=== PATIENT | female | born 1985 | race Caucasian/White ===

== ENCOUNTER 2017-08-21 21:41 | Emergency (ER) | payer OTHER, SELFPAY ==
[2017-08-21 21:45] VITALS: BP 120/72; PULSE 90; RESP 18; TEMP 36.3; O2SAT 99; BMI 31.4
--- NOTE | 2017-08-21 22:03 | ED.ALLEREA ---
HPI - Allergic Reaction General Chief complaint: Allergic Reaction Stated complaint: ALLERGIC REACTION Time Seen by Provider: 08/21/17 21:56 Source: patient Mode of arrival: ambulatory Limitations: no limitations History of Present Illness HPI narrative: Otherwise healthy 32-year-old female here for evaluation possible allergic reaction. Patient states that approximately noon on the day of presentation she took a new medication for her headaches that was provided by her headache specialist. She also took a dose of prednisone. She states that several hours after taking his medication she started to developed redness on her right upper extremity and itching. No problems breathing. No vomiting. Patient states that she had an allergic reaction to another medicine earlier in her life which presented the same way. She did take 25 mg of Benadryl prior to arrival. Related Data Home Medications Medication Instructions Recorded Confirmed Glutathione PO 07/23/17 08/14/17 Probiotic PO 07/23/17 08/14/17 Restore Gut PO 07/23/17 08/14/17 Tumeric PO 07/23/17 08/14/17 cholecalciferol (vitamin D3) 10,000 unit PO DAILY 07/23/17 08/14/17 10,000 unit tablet magnesium 250 mg tablet 800 mg PO DAILY tab 07/23/17 08/14/17 prednisone 08/21/17 verapamil 08/21/17 Previous Rx's Medication Instructions Recorded naratriptan 2.5 mg tablet 2.5 mg PO Q2H PRN #12 tab 07/23/17 prednisone 20 mg tablet 20 mg PO .COMPLEX #7 tab 07/23/17 prednisone 20 mg tablet 20 mg PO .COMPLEX #21 tab 08/18/17 verapamil ER 120 mg 24 hr 120 mg PO DAILY #30 cap 08/18/17 capsule,extended release Allergies Allergy/AdvReac Type Severity Reaction Status Date / Time Sulfa (Sulfonamide Allergy Severe ANAPHALAXIS Verified 08/21/17 21:56 Antibiotics) [SULFA (SULFONAMIDE ANTIBIOTICS)] warfarin [WARFARIN] Allergy Unknown Verified 08/21/17 21:56 Review of Systems Constitutional Denies chills, Denies fever(s), Denies lethargy and Denies weakness Eyes Denies change in vision, Denies eye discharge, Denies irritation, Denies itchy eyes and Denies loss of vision ENT Ears, Nose, Mouth, and Throat: Denies throat swelling Cardiovascular Denies dyspnea and Denies dyspnea on exertion Respiratory Denies cough, Denies dyspnea, Denies dyspnea on exertion and Denies wheezing Gastrointestinal Gastrointestinal: Denies abdominal pain, Denies change in bowel habits, Denies diarrhea, Denies nausea and Denies vomiting Musculoskeletal Denies back pain, Denies muscle weakness, Denies numbness and Denies tingling Comments: Integumentary/Breasts Reports pruritus, Reports new lesions, Reports erythema, Reports rash and Denies wounds Neurologic Denies loss of vision, Denies numbness, Denies tingling and Denies weakness Hematologic/Lymphatic Denies easy bruising Allergic/Immunologic Denies urticaria, Denies itchy eyes, Denies throat swelling and Denies wheezing [facility] Family History Grandfather Cancer High cholesterol Grandmother Age: 80 Lung cancer Brain cancer High cholesterol Mental health problem Mother Age: 52 Thyroid disease Mental health problem Sister Age: 23 Diabetes mellitus Hypertension Sister Age: 28 Thyroid disease Mental health problem Social History Smoking Status: Former smoker Exam Initial Vital Signs Initial Vital Signs: Vital Signs Temperature 97.3 F L 08/21/17 21:45 Pulse Rate 90 08/21/17 21:45 Respiratory Rate 18 08/21/17 21:45 Blood Pressure 120/72 08/21/17 21:45 Pulse Oximetry 99 08/21/17 21:45 Const General: cooperative and well developed Nutritional Appearance: well nourished Orientation: alert, awake, oriented x3 and not confused [facility] Head: normocephalic and atraumatic Nose: external nose normal and No nasal discharge Face and sinus: sinuses nontender, face symmetric, no sinus tenderness and No dry mucous membranes Mouth: oral mucosae normal and moist mucous membranes Teeth and gingiva: dentition normal Throat: tonsils normal and uvula midline Resp Effort & Inspection: normal respiratory effort, able to speak in complete sentences, no respiratory distress and no use of accessory muscles Auscultation: clear to auscultation bilaterally, no rales, no rhonchi and no wheezes Cardio Rate: regular rate Rhythm: regular rhythm Heart Sounds: no click, no gallops, no murmurs and no rubs Pulses: normal peripheral pulses Skin Other: Patient with a red area on upper extremity predominantly located around her right wrist. No blisters. No urticaria. No vesicles. Neuro General: alert, oriented x3, gait normal and no focal motor deficits Speech: speech normal Course Orders Ordered: Discontinued Medications Diphenhydramine HCl (Benadryl) 25 mg IV NOW ONE Stop: 08/21/17 22:11 Last Admin: 08/21/17 22:34 Dose: 25 mg Methylprednisolone (Solu-Medrol 125 Mg Vial) 125 mg IV NOW ONE Stop: 08/21/17 22:11 Last Admin: 08/21/17 22:34 Dose: 125 mg Vital Signs - 8 hr 08/21/17 21:45 08/21/17 23:39 Temperature 97.3 F L 97.7 F Pulse Rate 90 75 Respiratory Rate 18 16 Blood Pressure 120/72 104/64 Pulse Oximetry 99 99 MDM - Allergic Reaction MDM Narrative Medical decision making narrative: Patient was given steroids and Benadryl here in the emergency department. She states that the itching has improved somewhat but is not completely gone away. She has no respiratory distress. No signs of anaphylaxis. Will hold on giving any epinephrine. Offered more medication to help with the itching however the patient declined. We did discuss that the exact etiology of her symptoms is unknown however it could be from the new medication that she took earlier today. Recommend that she stop this medication until her symptoms completely resolved. She does have prednisone at home and she was instructed to continue this medication. She was given return precautions. She expressed understanding and agreement with plan Discharge Plan Departure Patient Disposition: Home, Self-Care Clinical Impression: Allergic reaction Discharge Date/Time: 08/21/17 23:39 Interventions: ED Discharge Assessment Last Done: 08/21/17 23:39 Instructions: DI for General Allergic Reactions Activity Restrictions/Additional Instructions: Continue the prednisone likely discussed. You can do the Benadryl 1-2 tablets every 4-6 hours as needed for the itching. I would recommend that you stop the verapamil until your symptoms have improved and then talk with the prescribing doctor regarding continuing this medication. Return to the emergency department for any new or worsening symptoms Prescriptions: No Action prednisone 20 mg tablet 20 mg PO .COMPLEX Qty: 21 RF: 0 verapamil 120 mg capsule,ext rel. pellets 24 hr 120 mg PO DAILY Qty: 30 RF: 11 prednisone 20 mg tablet RF: 0 verapamil 120 mg capsule,ext rel. pellets 24 hr RF: 0 Probiotic PO RF: 0 cholecalciferol (vitamin D3) 10,000 unit tablet 10,000 unit PO DAILY RF: 0 Restore Gut PO RF: 0 magnesium 250 mg tablet 800 mg PO DAILY RF: 0 Tumeric PO RF: 0 Glutathione PO RF: 0 prednisone 20 mg tablet 20 mg PO .COMPLEX Qty: 7 RF: 0 naratriptan 2.5 mg tablet 2.5 mg PO Q2H PRN (Reason: migraine headache) Qty: 12 RF: 11
[2017-08-21] MEDS: methylPREDNISolone 125 MG/2 ML VIAL IV (22:34)
[2017-08-21] MEDS: diphenhydrAMINE 50 MG/ML VIAL 25 MG IV (22:34)
[2017-08-21 23:39] VITALS: BP 104/64; PULSE 75; RESP 16; TEMP 36.5; O2SAT 99
== END 2017-08-21 23:39 | disposition home or self-care (01) ==
PROVIDERS: Emergency Provider Emergency Medicine; Family Provider Family Medicine; PCP Family Medicine
DX: T78.40XA Allergy, unspecified, initial encounter (principal)
CPT/HCPCS: 96374; 96375; 99282; 99285; J1200; J2930

== ENCOUNTER → 2017-09-10 10:55 | Outpatient (CLI) | payer OTHER, SELFPAY ==
[2017-09-11 17:35] LABS: Progesterone 8.7 ng/mL
[2017-09-12 15:10] LABS: Dehydroepiandrosterone Sulfate 166 mcg/dL (18-391)
[2017-09-12 17:54] LABS: Estrogen 252.5 pg/mL
== END ==
PROVIDERS: Visit Provider Nurse Practitioner Family
DX: E28.0 Estrogen excess (principal); N92.6 Irregular menstruation, unspecified; G43.919 Migraine, unspecified, intractable, without status migrainosus
CPT/HCPCS: 36415; 82627; 82672; 84144; 84403

== ENCOUNTER → 2017-11-25 14:41 | Outpatient (CLI) | payer OTHER, SELFPAY ==
[2017-11-25 16:23] LABS: Free T3, Triiodothyronine Free 3.62 pg/mL (2.77-5.27); Free T4, Direct Thyroxine 1.24 ng/dL (0.78-2.19)
[2017-11-27 15:04] LABS: Anti Thyroglobulin Antibody < 1 IU/mL (< 2); Thyroglobulin Level 56.5 ng/mL (2.8-40.9); Thyroid Peroxidase Antibodies < 1 IU/mL (< 9)
== END ==
PROVIDERS: PCP Naturopath; Visit Provider Naturopath
DX: E04.0 Nontoxic diffuse goiter (principal)
CPT/HCPCS: 36415; 84432; 84439; 84443; 84481; 86376; 86800

== ENCOUNTER → 2017-11-30 14:39 | Outpatient (CLI) | payer OTHER, SELFPAY ==
--- NOTE | 2017-11-30 | DI.RAD.S_ITS ---
PROCEDURE: XR CHEST 2V INDICATIONS: COUGH TECHNIQUE: 2 views of the chest were acquired. COMPARISON: [facility], , CHEST 1 VIEW, 12/04/2016, 21:15. FINDINGS: Surgical changes and devices: None. Lungs and pleura: No pleural effusions or pneumothorax. Lungs are clear. Mediastinum: Mediastinal contours are normal. Heart size is normal. Bones and chest wall: No suspicious bony abnormalities. Soft tissues appear unremarkable. IMPRESSION: No acute cardiopulmonary pathology. Dictated by: Nicola Gill M.D. on 11/30/2017 at 15:27 Approved by: Nicola Gill M.D. on 11/30/2017 at 15:28
== END ==
PROVIDERS: Family Provider Family Medicine; PCP Naturopath; Visit Provider Naturopath
DX: R05 Cough (principal)
CPT/HCPCS: 71046

== ENCOUNTER → 2017-12-09 15:07 | Outpatient (CLI) | payer OTHER, SELFPAY ==
[2017-12-09 15:47] LABS: Add Manual Diff / Slide Review NO; Basophils Percent Auto 0.6 % (0-2); Eosinophils Percent Auto 0.5 % (2-4); Hematocrit 43.3 % (36-46); Hemoglobin 14.8 g/dL (12.0-16.0); Lymphocytes Percent Auto 23.4 % (25-40); Mean Corpuscular HGB Conc 34.3 % (30-36); Mean Corpuscular Hemoglobin 31.7 PG (26-34); Mean Corpuscular Volume 92.4 fL (80-100); Neutrophils Absolute Auto 5200 /uL (3000-5900); Neutrophils Percent Auto 67.5 % (50-75); Platelet Count 159 X10^3/uL (150-400); Red Blood Cell Count 4.68 X10^6/uL (4.0-5.2); Red Cell Distribution Width 12.9 % (11.6-14.8); White Blood Cell Count 7.7 X10^3/uL (4.5-11.0)
[2017-12-09 16:12] LABS: Alanine Aminotransferase 21 IU/L (9-52); Albumin 4.8 g/dL (3.5-5.0); Albumin Globulin Ratio 1.7 (1.0-2.8); Alkaline Phosphatase 38 U/L (38-126); Aspartate Aminotransferase 15 IU/L (14-36); BUN Creatinine Ratio 15.7 (6-22); Bilirubin Total 0.6 mg/dL (0.2-1.3); Blood Urea Nitrogen 11 mg/dL (7-17); Calcium 9.8 mg/dL (8.4-10.2); Carbon Dioxide 30 mmol/L (22-32); Chloride 102 mmol/L (98-107); Estimated Glomerular Filt Rate > 60.0 mL/min (>60); Globulin 2.9 g/dL (1.7-4.1); Glucose 89 mg/dL (70-100); HEMOLYSIS 17 (0-50); Potassium 4.2 mmol/L (3.4-5.1); Sodium 142 mmol/L (137-145); Total Protein 7.7 g/dL (6.3-8.2)
== END ==
PROVIDERS: Family Provider Family Medicine; PCP Naturopath; Visit Provider Internal Medicine
DX: R00.2 Palpitations (principal)
CPT/HCPCS: 36415; 80053; 85025

== ENCOUNTER → 2017-12-18 15:00 | Outpatient (CLI) | payer OTHER, SELFPAY ==
--- NOTE | 2017-12-25 16:05 | PM.CARDMON.1 ---
Fire Chief Deputy Report Referral & Results Date Patient Seen: 12/18/17 Requesting provider: Joshua Zaldivar Indication: Palpitations Duration of monitoring (days): 3 Diary information: There was 1 diary entry by the patient associated with sinus rhythm There were 7 patient triggered events also associated with sinus rhythm Data: Minimum heart rate identified was 52 beats per minute at 00:28 on 12/19/2017 Maximum heart rate was 143 beats per minute at 08:47 on 12/20/2017 Less than 1% of identified beats were PACs No PVCs or identified Impression: Normal monitoring tech. No evidence of dysrhythmias a source of patient's symptoms
--- NOTE | 2017-12-25 16:08 | P.HOLT.S_ITS ---
Plant Wire Chief Report Referral & Results Date Patient Seen: 12/18/17 Requesting provider: Joshua Zaldivar Indication: Palpitations Duration of monitoring (days): 3 Diary information: There was 1 diary entry by the patient associated with sinus rhythm There were 7 patient triggered events also associated with sinus rhythm Data: Minimum heart rate identified was 52 beats per minute at 00:28 on 2017 Maximum heart rate was 143 beats per minute at 08:47 on 12/20/2017 Less than 1% of identified beats were PACs No PVCs or identified Impression: Normal equipment monitor phototypesetting. No evidence of dysrhythmias a source of patient's symptoms
== END ==
PROVIDERS: Family Provider Family Medicine; PCP Naturopath; Visit Provider Internal Medicine
DX: R00.2 Palpitations (principal)
CPT/HCPCS: 0296T; 0298T

== ENCOUNTER → 2018-02-05 09:29 | Outpatient (CLI) | payer OTHER, SELFPAY ==
[2018-02-05 11:37] LABS: Thyroid Stimulating Hormone 0.84 uIU/mL (0.47-4.68)
[2018-02-05 11:50] LABS: HIV 1 and 2 Antibody NEGATIVE (NEGATIVE)
[2018-02-06 14:39] LABS: CMV IgM Antibody < 30.00 AU/mL (< 30.00)
== END ==
PROVIDERS: PCP Naturopath; Visit Provider Naturopath
DX: J31.2 Chronic pharyngitis (principal); E04.0 Nontoxic diffuse goiter
CPT/HCPCS: 36415; 84443; 86644; 86645; 86658; 86703; 87081; 87147

== ENCOUNTER → 2018-03-08 13:11 | Outpatient (CLI) | payer OTHER, SELFPAY ==
--- NOTE | 2018-03-08 | DI.US.S_ITS ---
PROCEDURE: US ABDOMEN COMPLETE INDICATIONS: Left upper quadrant pain TECHNIQUE: Real-time scanning was performed of the abdominal and retroperitoneal organs, with image documentation. COMPARISON: [facility], , ABDOMEN ACUTE SERIES, 03/20/2017, 23:15. FINDINGS: Liver: Liver is normal in size and homogeneous in echotexture. Gallbladder: No gallstones. No gallbladder wall thickening, pericholecystic fluid or sonographic Kat's sign. Biliary ducts: Intrahepatic bile ducts are non-dilated. Extrahepatic bile duct caliber measures 5 mm. Normal is 6-7 mm or less in diameter, or 10 mm or less post-cholecystectomy. Pancreas: Visualized portions of the pancreas are sonographically normal. Spleen: Spleen is normal in size and homogeneous in echotexture. Kidneys: Kidneys are normal in size and echotexture. Right kidney measures 10.9 cm long; left kidney measures 11.7 cm long. No hydronephrosis or nephrolithiasis. No solid masses. Aorta: Visualized aorta is normal in caliber at less than 3 cm. Iliacs: Proximal common iliac arteries are normal in caliber at less than 2.5 cm. IVC: Intrahepatic inferior vena cava is patent. Miscellaneous: No free abdominal fluid. IMPRESSION: 1. Normal abdominal ultrasound exam. A cause for left upper quadrant pain is not identified Dictated by: Gael Olivia M.D. on 03/08/2018 at 14:39 Approved by: Gael Olivia M.D. on 03/08/2018 at 14:41
== END ==
PROVIDERS: Family Provider Family Medicine; PCP Naturopath; Visit Provider Naturopath
DX: R10.12 Left upper quadrant pain (principal)
CPT/HCPCS: 76700

== ENCOUNTER → 2018-06-04 11:15 | Outpatient (CLI) | payer OTHER, SELFPAY ==
--- NOTE | 2018-06-04 11:17 | DI.MRI.S_ITS ---
PROCEDURE: MR HEAD/BRAIN WO CON INDICATIONS: positional dexter worse lying down. r/o IIH changes TECHNIQUE: Noncontrast axial T1 spin echo, axial T2 fast spin echo, sagittal and axial FLAIR, coronal T2 fast spin echo, axial gradient echo, axial diffusion and ADC through the brain. COMPARISON: [facility], MR, BRAIN WITHOUT CONTRAST, 02/18/2017, 10:05. [facility], MR, MR BRAIN WITH/WITHOUT CONTRAST, 05/05/2017, 10:14. FINDINGS: Image quality: Excellent. CSF Spaces: Basal cisterns are patent. No extra-axial fluid collections. Ventricles are normal in size and shape. Brain: No intracranial masses or hemorrhage. Narvaez/white matter interface is normal. Brainstem appears normal. Diffusion-weighted images demonstrate no acute ischemic insult. No chronic ischemic insults. Normal intravascular flow voids are present. Skull and face: Calvarium has normal marrow signal. Orbits appear normal. Sinuses: Sinuses and mastoids are clear. IMPRESSION: Unremarkable unenhanced examination. Normal appearance of the sella. Dictated by: Haider Singer M.D. on 06/04/2018 at 13:39 Approved by: Haider Singer M.D. on 06/04/2018 at 13:43
== END ==
PROVIDERS: Absent Provider Family Medicine; Family Provider Family Medicine; PCP Naturopath; Visit Provider Family Medicine
DX: G43.119 Migraine with aura, intractable, without status migrainosus (principal)
CPT/HCPCS: 70551

== ENCOUNTER → 2018-07-22 14:10 | Outpatient (CLI) | payer OTHER, SELFPAY ==
[2018-07-22 14:47] LABS: Add Manual Diff / Slide Review NO; Basophils Absolute Auto 0 /uL (0-100); Basophils Percent Auto 0.6 % (0-2); Eosinophils Absolute Auto 0 /uL (0-450); Eosinophils Percent Auto 0.3 % (2-4); Hematocrit 45.1 % (36-46); Hemoglobin 15.2 g/dL (12.0-16.0); Lymphocytes Absolute Auto 1900 /uL (1100-4500); Mean Corpuscular HGB Conc 33.7 % (30-36); Mean Corpuscular Hemoglobin 31.3 PG (26-34); Mean Corpuscular Volume 92.7 fL (80-100); Monocytes Absolute Auto 500 /uL (0-900); Monocytes Percent Auto 7.6 % (3-14); Neutrophils Absolute Auto 3700 /uL (1500-7000); Neutrophils Percent Auto 60.5 % (50-75); Platelet Count 157 X10^3/uL (150-400); Red Blood Cell Count 4.87 X10^6/uL (4.0-5.2); Red Cell Distribution Width 13.3 % (11.6-14.8); White Blood Cell Count 6.1 X10^3/uL (4.5-11.0)
[2018-07-22 14:50] LABS: PTT Partial Thromboplastin Tim 36 SECONDS (26.4-36.2)
== END ==
PROVIDERS: PCP Naturopath; Visit Provider Family Medicine
DX: G08 Intracranial and intraspinal phlebitis and thrombophlebitis (principal)
CPT/HCPCS: 36415; 85025; 85610; 85730

== ENCOUNTER 2018-07-30 12:08 | Emergency (ER) | payer OTHER, SELFPAY ==
[2018-07-30 12:10] VITALS: BP 122/77; PULSE 91; RESP 12; TEMP 36.6; O2SAT 100; BMI 31.1
[2018-07-30 12:30] VITALS: BP 132/73; PULSE 91; RESP 18; O2SAT 100
--- NOTE | 2018-07-30 13:06 | DI.CT.S_ITS ---
PROCEDURE: CT ANGIO CHEST PE PROTOCOL INDICATIONS: chest pain, near syncope, hx Factor V TECHNIQUE: After the administration of intravenous contrast, 2 mm thick sections acquired from the pulmonary apices to the posterior costophrenic angles. 3-dimensional maximum intensity projection (MIP) coronal and sagittal reformats were then acquired through the thorax. For radiation dose reduction, the following was used: automated exposure control, adjustment of mA and/or kV according to patient size. COMPARISON: [facility], CT, PE STUDY (CTA CHEST), 12/04/2016, 21:52. FINDINGS: Image quality: Excellent. Pulmonary arteries: Pulmonary arterial opacification is suboptimal. No definite filling defects within the central pulmonary arterial tree to indicate embolus. Lungs and pleura: Lungs are clear. No pleural effusions or pneumothorax. Central and peripheral airways are patent. Mediastinum: Heart size is normal, without pericardial effusion. No mediastinal or hilar adenopathy. Thoracic aorta is normal in caliber and enhancement. Esophagus is normal in caliber, without hiatal hernia. Bones and chest wall: No suspicious bony lesions. Ribs and thoracic spine appear intact throughout. Thyroid gland is within normal limits. No axillary or supraclavicular adenopathy. Abdomen: Visualized upper abdominal solid organs appear normal in the early arterial phase of enhancement. IMPRESSION: 1. Limited evaluation for pulmonary embolus. No evidence of central pulmonary embolus. 2. No acute process. Dictated by: Danish Manjarrez M.D. on 07/30/2018 at 13:18 Approved by: Danish Manjarrez M.D. on 07/30/2018 at 13:20
[2018-07-30 13:09] LABS: Bacteria Urine None Seen
--- NOTE | 2018-07-30 13:10 | ED.SYNCOPE ---
HPI - Syncope General Chief Complaint: Syncope Stated Complaint: syncopal Time Seen by Provider: 07/30/18 12:38 Source: patient and EMS Mode of arrival: EMS Limitations: no limitations History of Present Illness HPI narrative: 33-year-old female nonsmoker with history of factor 5 [place] presents with a chief complaint of chest pain, palpitations, shortness of breath and near syncope just prior to arrival. She states her pain is achy or pressure-like and radiates to her back. She denies provocation or palliation. She denies nausea, vomiting or diaphoresis. She denies recent travel. She denies and has an IUD in place. 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 She then was helped to the floor and nearly passed out. MD complaint: felt faint and almost passed out Onset (ago): minute(s) Prodromal symptoms: vision changes and lightheaded Witnessed: yes - by bystander Context: at rest Injuries sustained associated with event: none Current symptoms: none Treatments prior to arrival: none Related Data Home Medications Medication Instructions Recorded Confirmed Probiotic PO 07/23/17 07/23/18 cholecalciferol (vitamin D3) 10,000 unit PO DAILY 07/23/17 07/23/18 10,000 unit tablet copper 380 square mm intrauterine INTRAUTERINE each 03/08/18 07/23/18 device magnesium 250 mg tablet 421 mg PO DAILY tab 05/24/18 07/23/18 Allergies Allergy/AdvReac Type Severity Reaction Status Date / Time Sulfa (Sulfonamide Allergy Severe ANAPHALAXIS Verified 07/23/18 11:20 Antibiotics) [SULFA (SULFONAMIDE ANTIBIOTICS)] warfarin [WARFARIN] Allergy Unknown Verified 07/23/18 11:20 verapamil Allergy Verified 07/23/18 11:20 Review of Systems Constitutional Denies chills, Denies fever(s), Denies lethargy and Denies weakness Eyes Denies change in vision, Denies eye discharge, Denies irritation and Denies loss of vision ENT Ears, Nose, Mouth, and Throat: Denies change in voice, Denies neck pain and Denies sore throat Cardiovascular Reports chest pain, Denies irregular heart rhythm, Denies lightheadedness, Reports palpitations, Reports dyspnea, Reports dyspnea on exertion and Denies orthopnea Respiratory Denies cough, Reports dyspnea, Reports dyspnea on exertion and Denies wheezing Gastrointestinal Gastrointestinal: Denies abdominal pain, Denies change in bowel habits, Denies diarrhea, Denies nausea and Denies vomiting Genitourinary Denies hematuria, Denies flank pain, Denies urinary incontinence and Denies urinary urgency Musculoskeletal Reports back pain and Denies neck pain Integumentary/Breasts Denies pruritus, Denies erythema, Denies rash and Denies wounds Neurologic Denies confusion, Denies loss of vision and Denies weakness Psychiatric Denies anxiety, Denies confusion, Denies depression, Denies homicidal ideation and Denies suicidal ideation Endocrine Reports palpitations Hematologic/Lymphatic Denies easy bruising Allergic/Immunologic Denies wheezing [facility] Medical History Abnormal Pap smear of cervix (Chronic ~2014) Anxiety (Chronic ~2011) Carpal tunnel syndrome (Chronic) Frequent UTI (Chronic ~2014) Ovarian cyst (Chronic ~2007) Shoulder pain (Chronic ~2007) Chicken pox (Resolved) Family History Grandfather Cancer High cholesterol Grandmother Age: 81 Lung cancer Brain cancer High cholesterol Mental health problem Mother Age: 53 Thyroid disease Mental health problem Sister Age: 24 Diabetes mellitus Hypertension CAH (chronic active hepatitis) Sister Age: 29 Thyroid disease Mental health problem Social History Smoking Status: Former smoker Family History Grandfather Cancer High cholesterol Grandmother Age: 81 Lung cancer Brain cancer High cholesterol Mental health problem Mother Age: 53 Thyroid disease Mental health problem Sister Age: 24 Diabetes mellitus Hypertension CAH (chronic active hepatitis) Sister Age: 29 Thyroid disease Mental health problem Social History Smoking Status: Former smoker Exam Narrative Exam Narrative: GENERAL: This is a well-nourished, well-developed patient, in mild distress. HEAD: Atraumatic. Normocephalic. No temporal or scalp tenderness. EYES: Pupils equal round and reactive. Extraocular motions intact. No scleral icterus. No injection or drainage. ENT: Nose without bleeding, purulent drainage or septal hematoma. Throat without erythema, tonsillar hypertrophy or exudate. Uvula midline. Airway patent. NECK: Trachea midline. No JVD or lymphadenopathy. Supple, nontender, no meningeal signs. CARDIOVASCULAR: Regular rate and rhythm without murmurs, gallops, or rubs. RESPIRATORY: Clear to auscultation. Breath sounds equal bilaterally. No wheezes, rales, or rhonchi. GASTROINTESTINAL: Abdomen soft, non-tender, nondistended. No hepato-splenomegaly, or palpable masses. No guarding. EXTREMITIES: No clubbing, cyanosis, or edema. No joint tenderness, effusion, or edema noted. BACK: Nontender without deformity or crepitance. No flank tenderness. NEURO: AOx3. SKIN: No rash or erythema. Initial Vital Signs Initial Vital Signs: Vital Signs Temperature 97.9 F 07/30/18 12:10 Pulse Rate 91 H 07/30/18 12:10 Respiratory Rate 12 07/30/18 12:10 Blood Pressure 122/77 07/30/18 12:10 Pulse Oximetry 100 07/30/18 12:10 Course Orders Ordered: ED Orders 07/30/18 12:47 Urinalysis and Microscopic Stat Urine Drug Screen, Rapid Stat 07/30/18 13:06 CT angio chest PE protocol Stat 07/30/18 13:20 Complete Blood Count AUTO DIFF Stat Comprehensive Metabolic Panel Stat Lipase Stat Troponin & CK Cardiac Panel Stat 07/30/18 13:44 EKG-12 Lead Stat 07/30/18 14:45 US abdomen complete Stat Discontinued Medications Sodium Chloride (Normal Saline 0.9%) 1,000 mls @ 150 mls/hr IV CONT ROBERTO Last Infusion: 07/30/18 17:48 Dose: 0 mls/hr Admin: 07/30/18 13:20 Dose: 150 mls/hr Consultations Consultation #1: discussed with PCP, happy to see in office next week Vital Signs - 8 hr 07/30/18 12:10 07/30/18 12:30 07/30/18 13:22 Temperature 97.9 F Pulse Rate 91 H 91 H 90 Respiratory Rate 12 18 16 Blood Pressure 122/77 Blood Pressure [Right Arm] 132/73 116/73 Pulse Oximetry 100 100 100 07/30/18 14:46 07/30/18 16:55 Temperature Pulse Rate 87 82 Respiratory Rate 19 15 Blood Pressure Blood Pressure [Right Arm] 120/71 112/72 Pulse Oximetry 98 98 MDM - Syncope Lab Data Result diagrams: 07/30/18 13:20 07/30/18 13:20 Lab Results 07/30/18 07/30/18 07/30/18 Range/Units 12:47 12:47 13:20 WBC 5.9 (4.5-11.0) X10^3/uL RBC 4.75 (4.0-5.2) X10^6/uL Hgb 14.5 (12.0-16.0) g/dL Hct 44.2 (36-46) % MCV 93.0 (80-100) fL MCH 30.5 (26-34) PG MCHC 32.8 (30-36) % RDW 13.0 (11.6-14.8) % Plt Count 140 L (150-400) X10^3/uL Neut % (Auto) 72.4 (50-75) % Lymph % (Auto) 21.3 L (25-40) % [place] % (Auto) 5.7 (3-14) % Eos % (Auto) 0.3 L (2-4) % Baso % (Auto) 0.3 (0-2) % Neut # (Auto) 4300 (3782-7121) /uL Lymph # (Auto) 1300 (7541-1933) /uL [place] # (Auto) 300 (0-900) /uL Eos # (Auto) 0 (0-450) /uL Baso # (Auto) 0 (0-100) /uL Sodium (137-145) mmol/L Potassium (3.4-5.1) mmol/L Chloride (98-107) mmol/L Carbon Dioxide (22-32) mmol/L BUN (7-17) mg/dL Creatinine (0.52-1.04) mg/dL Estimated GFR (>60) mL/min BUN/Creatinine Ratio (6-22) Glucose (70-100) mg/dL Calcium (8.4-10.2) mg/dL Total Bilirubin (0.2-1.3) mg/dL AST (14-36) IU/L ALT (9-52) IU/L Alkaline Phosphatase (38-126) U/L Total Creatine Kinase (30-135) U/L CK-MB (CK-2) CK-MB (CK-2) Rel Index Troponin I (0.01-0.034) ng/mL Total Protein (6.3-8.2) g/dL Albumin (3.5-5.0) g/dL Globulin (1.7-4.1) g/dL Albumin/Globulin Ratio (1.0-2.8) Lipase (23-300) U/L Urine Color Yellow Urine Appearance Clear Urine pH 7.5 (4.5-8.0) Ur Specific [place] 1.010 (1.000-1.035) Urine Protein Negative (Negative) Urine Glucose (UA) Negative (Negative) g/dL Urine Ketones Trace H (NEGATIVE) Urine Occult Blood Negative (Negative) Urine Nitrate Negative (Negative) Urine Bilirubin Negative (NEGATIVE) Urine Urobilinogen 0.2 (0.2) E.U./dL Ur Leukocyte Esterase Negative (NEGATIVE) Urine RBC 0-1/hpf (0-5/HPF) Urine WBC 0-1/hpf (0-5/HPF) Ur Squamous Epith Cells 0-1 /hpf (0-5/HPF) Urine Bacteria None seen (None) Ur Culture Indicated? Cult not indicated Micro UA Comment Microscopic normal Urine Opiates Screen Negative (Negative) Ur Oxycodone Screen Negative (Negative) Urine Methadone Screen Negative (Negative) Ur Barbiturates Screen Negative (Negative) U Tricyclic Antidepress Negative (Negative) Ur Phencyclidine Scrn Negative (Negative) Ur Amphetamines Screen Negative (Negative) U Methamphetamines Scrn Negative (Negative) Ur MDMA Scrn (Ecstasy) Negative (Negative) U Benzodiazepines Scrn Negative (Negative) Urine Cocaine Screen Negative (Negative) U Marijuana (THC) Screen Negative (Negative) 07/30/18 Range/Units 13:20 WBC (4.5-11.0) X10^3/uL RBC (4.0-5.2) X10^6/uL Hgb (12.0-16.0) g/dL Hct (36-46) % MCV (80-100) fL MCH (26-34) PG MCHC (30-36) % RDW (11.6-14.8) % Plt Count (150-400) X10^3/uL Neut % (Auto) (50-75) % Lymph % (Auto) (25-40) % [place] % (Auto) (3-14) % Eos % (Auto) (2-4) % Baso % (Auto) (0-2) % Neut # (Auto) (4881-5506) /uL Lymph # (Auto) (5439-5224) /uL [place] # (Auto) (0-900) /uL Eos # (Auto) (0-450) /uL Baso # (Auto) (0-100) /uL Sodium 140 (137-145) mmol/L Potassium 3.4 (3.4-5.1) mmol/L Chloride 104 (98-107) mmol/L Carbon Dioxide 25 (22-32) mmol/L BUN 6 L (7-17) mg/dL Creatinine 0.60 (0.52-1.04) mg/dL Estimated GFR > 60.0 (>60) mL/min BUN/Creatinine Ratio 10.0 (6-22) Glucose 88 (70-100) mg/dL Calcium 9.3 (8.4-10.2) mg/dL Total Bilirubin 0.6 (0.2-1.3) mg/dL AST 16 (14-36) IU/L ALT 19 (9-52) IU/L Alkaline Phosphatase 49 (38-126) U/L Total Creatine Kinase 52 (30-135) U/L CK-MB (CK-2) TNP CK-MB (CK-2) Rel Index TNP Troponin I < 0.012 (0.01-0.034) ng/mL Total Protein 8.0 (6.3-8.2) g/dL Albumin 4.7 (3.5-5.0) g/dL Globulin 3.3 (1.7-4.1) g/dL Albumin/Globulin Ratio 1.4 (1.0-2.8) Lipase 66 (23-300) U/L Urine Color Urine Appearance Urine pH (4.5-8.0) Ur Specific [place] (1.000-1.035) Urine Protein (Negative) Urine Glucose (UA) (Negative) g/dL Urine Ketones (NEGATIVE) Urine Occult Blood (Negative) Urine Nitrate (Negative) Urine Bilirubin (NEGATIVE) Urine Urobilinogen (0.2) E.U./dL Ur Leukocyte Esterase (NEGATIVE) Urine RBC (0-5/HPF) Urine WBC (0-5/HPF) Ur Squamous Epith Cells (0-5/HPF) Urine Bacteria (None) Ur Culture Indicated? Micro UA Comment Urine Opiates Screen (Negative) Ur Oxycodone Screen (Negative) Urine Methadone Screen (Negative) Ur Barbiturates Screen (Negative) U Tricyclic Antidepress (Negative) Ur Phencyclidine Scrn (Negative) Ur Amphetamines Screen (Negative) U Methamphetamines Scrn (Negative) Ur MDMA Scrn (Ecstasy) (Negative) U Benzodiazepines Scrn (Negative) Urine Cocaine Screen (Negative) U Marijuana (THC) Screen (Negative) Point of Care Testing Test Results Negative Urine Dip Bedside Urine Glucose Negative Bedside Urine Bilirubin - Negative Bedside Urine Ketone +/- 5 Urine Specific [place] 1.010 Bedside Urine Occult Blood - Negative Bedside Urine pH 8.0 Bedside Urine Protein - Negative Bedside Urine Urobilinogen - Negative Bedside Urine Nitrite - Negative Bedside Urine Leukocytes - Negative Esterase Imaging Data CT scan - chest: Radiologist's impression: 58 Franck Cedillo DO Find Patient Imaging Miryam Davila 33 F 1985 ACTIVITY DATE EXAM STATUS AUTHOR 07/30/18 13:06 [place] [address] CT Scan Report Signed Patient: Miryam Davila RMR#: [id number] : 1985Acct:[id number] Age/Sex: te of Service: 07/30/18 Loc: ED Accession Number: [id number] Procedure: CT angio chest PE protocol Ordering Provider: Franck Cedillo D.O. PROCEDURE: CT ANGIO CHEST PE PROTOCOL INDICATIONS: chest pain, near syncope, hx Factor V TECHNIQUE: After the administration of intravenous contrast, 2 mm thick sections acquired from the pulmonary apices to the posterior costophrenic angles. 3-dimensional maximum intensity projection (MIP) coronal and sagittal reformats were then acquired through the thorax. For radiation dose reduction, the following was used: automated exposure control, adjustment of mA and/or kV according to patient size. COMPARISON: [facility], CT, PE STUDY (CTA CHEST), 12/04/2016, 21:52. FINDINGS: Image quality: Excellent. Pulmonary arteries: Pulmonary arterial opacification is suboptimal. No definite filling defects within the central pulmonary arterial tree to indicate embolus. Lungs and pleura: Lungs are clear. No pleural effusions or pneumothorax. Central and peripheral airways are patent. Mediastinum: Heart size is normal, without pericardial effusion. No mediastinal or hilar adenopathy. Thoracic aorta is normal in caliber and enhancement. Esophagus is normal in caliber, without hiatal hernia. Bones and chest wall: No suspicious bony lesions. Ribs and thoracic spine appear intact throughout. Thyroid gland is within normal limits. No axillary or supraclavicular adenopathy. Abdomen: Visualized upper abdominal solid organs appear normal in the early arterial phase of enhancement. IMPRESSION: 1. Limited evaluation for pulmonary embolus. No evidence of central pulmonary embolus. 2. No acute process. Dictated by: Danish Manjarrez M.D. on 07/30/2018 at 13:18 Approved by: Danish Manjarrez M.D. on 07/30/2018 at 13:20 ECG Data Attestation: I personally reviewed and interpreted this ECG as follows: Prior ECG tracings: not available for review Interpretation: EKG is normal sinus rhythm rate [ 77] and free of any signs of ischemia or ectopy. No ST segmental elevation or depression. No T wave inversions MDM Narrative Medical decision making narrative: Multiple etiologies for patient's symptoms considered including: [Pulmonary embolism versus myocardial infarction versus pancreatitis versus gallbladder disease versus ulcer versus other] Patient's symptoms improved or duration of stay with above-stated therapies. Findings and discharge diagnosis discussed with patient/family followed by verbalization of understanding Return precautions discussed with patient/family whom verbalize understanding. Discharge Plan Departure Patient Disposition: Home Clinical Impression: Near syncope, Atypical chest pain Discharge Date/Time: 07/30/18 17:40 Interventions: ED Discharge Assessment Last Done: 07/30/18 17:40 Activity Restrictions/Additional Instructions: *You have been diagnosed with [near syncope, atypical chest pain] *What to do: *Take medications as directed *Follow up with your primary care provider in 2-3 days, call for an appointment. Let them know you were seen in the Emergency Department and that we ask that you be seen in follow up *Return to ER if you should have any new, worsening or concerning symptoms Prescriptions: No Action copper [ParaGard T 380A] 380 square mm intrauterine device Intrauterine RF: 0 Probiotic PO RF: 0 cholecalciferol (vitamin D3) 10,000 unit tablet 10,000 unit PO DAILY RF: 0 magnesium 250 mg tablet 421 mg PO DAILY RF: 0 Referrals: Javed,Madeleine, [place] [Primary Care Provider] -
[2018-07-30 13:12] LABS: Appearance Urine UA CLEAR; Bilirubin Urine UA NEGATIVE (NEGATIVE); Color Urine UA YELLOW; Glucose Urine UA NEGATIVE (Negative); Ketones Urine UA TRACE (NEGATIVE); Leukocyte Esterase Urine UA NEGATIVE (NEGATIVE); Nitrite Urine UA NEGATIVE (Negative); Occult Blood Urine UA NEGATIVE (Negative); Protein Urine UA NEGATIVE (Negative); Urobilinogen Urine UA 0.2 E.U./dL (0.2); pH Urine UA 7.5 (4.5-8.0)
[2018-07-30 13:14] LABS: Urine Amphetamines Negative (Negative); Urine Barbiturates Negative (Negative); Urine Benzodiazepines Negative (Negative); Urine Cocaine Negative (Negative); Urine MDMA Negative (Negative); Urine Methadone Negative (Negative); Urine Methamphetamines Negative (Negative); Urine Morphine/Opi cutoff 2000 Negative (Negative); Urine Oxycodone Negative (Negative); Urine Phencyclidine Negative (Negative); Urine Tetrahydrocannabinol Negative (Negative); Urine Tricyclic Antidepressant Negative (Negative)
[2018-07-30 13:20] LABS: Culture Indicated Urine Cult Not Indicated; RBC Urine 0-1/HPF (0-5/HPF); Squamous Epithelial Cell Urine 0-1 /HPF (0-5/HPF); Urine Comments Microscopic Normal; WBC Urine 0-1/HPF (0-5/HPF)
[2018-07-30] MEDS: SODIUM CHLORIDE 0.9% 1,000 ML 150 ML IV (13:20)
[2018-07-30 13:22] VITALS: BP 116/73; PULSE 90; RESP 16; O2SAT 100
[2018-07-30 13:27] LABS: Add Manual Diff / Slide Review NO; Basophils Absolute Auto 0 /uL (0-100); Basophils Percent Auto 0.3 % (0-2); Eosinophils Absolute Auto 0 /uL (0-450); Eosinophils Percent Auto 0.3 % (2-4); Hematocrit 44.2 % (36-46); Hemoglobin 14.5 g/dL (12.0-16.0); Lymphocytes Absolute Auto 1300 /uL (1100-4500); Lymphocytes Percent Auto 21.3 % (25-40); Mean Corpuscular HGB Conc 32.8 % (30-36); Mean Corpuscular Hemoglobin 30.5 PG (26-34); Monocytes Absolute Auto 300 /uL (0-900); Monocytes Percent Auto 5.7 % (3-14); Neutrophils Absolute Auto 4300 /uL (1500-7000); Neutrophils Percent Auto 72.4 % (50-75); Platelet Count 140 X10^3/uL (150-400); Red Blood Cell Count 4.75 X10^6/uL (4.0-5.2); White Blood Cell Count 5.9 X10^3/uL (4.5-11.0)
[2018-07-30 13:43] LABS: Alanine Aminotransferase 19 IU/L (9-52); Albumin 4.7 g/dL (3.5-5.0); Albumin Globulin Ratio 1.4 (1.0-2.8); Alkaline Phosphatase 49 U/L (38-126); Aspartate Aminotransferase 16 IU/L (14-36); Bilirubin Total 0.6 mg/dL (0.2-1.3); Blood Urea Nitrogen 6 mg/dL (7-17); Calcium 9.3 mg/dL (8.4-10.2); Carbon Dioxide 25 mmol/L (22-32); Chloride 104 mmol/L (98-107); Creatine Kinase 52 U/L (30-135); Estimated Glomerular Filt Rate > 60.0 mL/min (>60); Globulin 3.3 g/dL (1.7-4.1); Glucose 88 mg/dL (70-100); HEMOLYSIS < 15 (0-50); Lipase 66 U/L (23-300); Potassium 3.4 mmol/L (3.4-5.1); Sodium 140 mmol/L (137-145)
[2018-07-30 13:55] LABS: Troponin I < 0.012 ng/mL (0.01-0.034)
--- NOTE | 2018-07-30 14:45 | DI.US.S_ITS ---
PROCEDURE: US ABDOMEN COMPLETE INDICATIONS: epigastric pain, per PCP TECHNIQUE: Real-time scanning was performed of the abdominal and retroperitoneal organs, with image documentation. COMPARISON: [facility], CT, CT ANGIO CHEST PE PROTOCOL, 07/30/2018, 13:01. FINDINGS: Liver: Liver is normal in size and homogeneous in echotexture. Gallbladder: The gallbladder is within normal limits without cholelithiasis or gallbladder wall inflammation. Biliary ducts: Intrahepatic bile ducts are non-dilated. Extrahepatic bile duct caliber measures 4 mm. Normal is 6-7 mm or less in diameter, or 10 mm or less post-cholecystectomy. Pancreas: Visualized portions of the pancreas are sonographically normal. Spleen: Spleen is normal in size and homogeneous in echotexture. Splenic vessels appear to be slightly prominent. The Kidneys: Kidneys are normal in size and echotexture. Right kidney measures 11.5 cm long; left kidney measures 11.4 cm long. No hydronephrosis or shadowing nephrolithiasis. No solid masses. Aorta: Visualized aorta is normal in caliber at less than 3 cm. Iliacs: Proximal common iliac arteries are normal in caliber at less than 2.5 cm. IVC: Intrahepatic inferior vena cava is patent. Miscellaneous: No free abdominal fluid. IMPRESSION: 1. No cholelithiasis or evidence of acute cholecystitis. 2. No hydronephrosis or shadowing renal calculi. Dictated by: Ed Kamara M.D. on 07/30/2018 at 15:26 Approved by: Ed Kamara M.D. on 07/30/2018 at 15:28
[2018-07-30 14:46] VITALS: BP 120/71; PULSE 87; RESP 19; O2SAT 98
[2018-07-30 16:55] VITALS: BP 112/72; PULSE 82; RESP 15; O2SAT 98
== END 2018-07-30 17:40 | disposition home or self-care (01) ==
PROVIDERS: Emergency Provider Emergency Medicine; PCP Naturopath
DX: R55 Syncope and collapse (principal); R00.2 Palpitations; R07.89 Other chest pain; R06.02 Shortness of breath
CPT/HCPCS: 36415; 36591; 71275; 76700; 80053; 80305; 81001; 81003; 81025; 82550; 83690; 84484; 85025; 93005; 93010; 96360; 96361; 99284; 99285; Q9967

== ENCOUNTER → 2019-04-15 15:04 | Outpatient (CLI) | payer OTHER, SELFPAY | PROVIDERS: PCP Family Medicine; Visit Provider Registered Nurse | DX: J02.9 Acute pharyngitis, unspecified (principal) | CPT/HCPCS: 87070 ==

== ENCOUNTER → 2019-09-03 09:25 | Outpatient (CLI) | payer OTHER, SELFPAY ==
[2019-09-04 02:25] LABS: COVID19 Sendout Not Detected (Not Detect)
== END ==
PROVIDERS: PCP Family Medicine; Visit Provider Physician Assistant
DX: Z11.59 Encounter for screening for other viral diseases (principal)
CPT/HCPCS: 87635

== ENCOUNTER → 2019-09-05 12:42 | Outpatient (CLI) | payer OTHER, SELFPAY ==
--- NOTE | 2019-09-05 12:44 | DI.US.S_ITS ---
PROCEDURE: US PELVIC COMPLETE INDICATIONS: PELVIC PAIN TECHNIQUE: Real-time scanning was performed of the pelvic organs, with image documentation. Additional endovaginal scanning was necessary due to incomplete visualization of the adnexal and endometrial structures by transabdominal scanning. COMPARISON: [facility], US, US PELVIC COMPLETE, 03/08/2018, 9:45. FINDINGS: Transabdominal scanning: Limited scanning through the kidneys shows no hydronephrosis. No pathologic free abdominal or pelvic fluid. Endovaginal scanning: Uterus: Uterus is normal in size at 8.0 x 4.5 x 5.8 cm. The endometrium measures 1.3 mm in combined thickness. Intrauterine device in expected central position. Ovaries: Ovaries normal bilaterally measuring 4.3 x 3.4 x 2.3 cm and the right and 4.0 x 3.1 x 2.3 cm on the left. Prominent adnexal vasculature noted. IMPRESSION: 1. IUD in expected position. 2. Normal appearance of the uterus and ovaries. 3. Prominent adnexal vasculature which can be associated with pelvic congestion syndrome. Correlate clinically. Dictated by: Albin [facility] Interpreted: Nicola Gill MD on 09/05/2019 at 14:52 Approved by: Nicola Gill M.D. on 09/05/2019 at 17:39
== END ==
PROVIDERS: PCP Nurse Practitioner Family
DX: R10.2 Pelvic and perineal pain (principal); Z97.5 Presence of (intrauterine) contraceptive device
CPT/HCPCS: 76830; 76856

== ENCOUNTER → 2019-09-26 10:28 | Outpatient (CLI) | payer OTHER, SELFPAY ==
--- NOTE | 2019-09-26 10:31 | DI.US.S_ITS ---
PROCEDURE: US PERIPH VENOUS LOW EXTREM RT INDICATIONS: CALF PAIN, BRUISING; FACTOR 5 TECHNIQUE: Real-time imaging, as well as color and pulse Doppler interrogation, were performed of the lower extremity deep veins from the inguinal ligament to the popliteal fossa. COMPARISON: [facility], CR, XR CHEST 2V, 11/30/2017, 14:19. FINDINGS: The common femoral, femoral and popliteal veins are normally compressible, and free of intraluminal thrombus. Color and pulse Doppler demonstrate normal phasic intraluminal flow. There is normal augmentation response to distal compression maneuver. Additional targeted sonographic imaging was performed at the site of the patient's area of concern involving the right foot region. There is no drainable or loculated fluid collection identified within this region. IMPRESSION: No evidence of deep vein thrombosis of the right lower extremity. No hematoma is evident on the provided images. Dictated by: Ed Kamara M.D. on 09/26/2019 at 10:14 Approved by: Ed Kamara M.D. on 09/26/2019 at 10:15
[2019-09-26 11:17] LABS: Add Manual Diff / Slide Review NO; Basophils Absolute Auto 0 /uL (0-100); Basophils Percent Auto 0.8 % (0-2); Eosinophils Absolute Auto 0 /uL (0-450); Eosinophils Percent Auto 0.8 % (2-4); Hematocrit 43.1 % (36-46); Hemoglobin 14.6 g/dL (12.0-16.0); Lymphocytes Absolute Auto 1600 /uL (1100-4500); Lymphocytes Percent Auto 31.4 % (25-40); Mean Corpuscular HGB Conc 33.8 % (30-36); Mean Corpuscular Hemoglobin 31.4 PG (26-34); Monocytes Absolute Auto 400 /uL (0-900); Monocytes Percent Auto 8.3 % (3-14); Neutrophils Absolute Auto 3100 /uL (1500-7000); Neutrophils Percent Auto 58.7 % (50-75); Platelet Count 151 X10^3/uL (150-400); Red Blood Cell Count 4.63 X10^6/uL (4.0-5.2); Red Cell Distribution Width 13.1 % (11.6-14.8); White Blood Cell Count 5.2 X10^3/uL (4.5-11.0)
[2019-09-26 11:28] LABS: Prothrombin Time 11.7 SECONDS (10.1-12.7)
[2019-09-26 11:31] LABS: PTT Partial Thromboplastin Tim 36 SECONDS (26.4-36.2)
== END ==
PROVIDERS: PCP Nurse Practitioner Family; Referring Provider Physician Assistant; Visit Provider Physician Assistant
DX: D68.51 Activated protein C resistance (principal); M79.661 Pain in right lower leg; T14.8XXA Other injury of unspecified body region, initial encounter; X58.XXXA Exposure to other specified factors, initial encounter
CPT/HCPCS: 36415; 85025; 85610; 85730; 93971

== ENCOUNTER → 2019-11-09 10:37 | Outpatient (CLI) | payer OTHER, SELFPAY ==
[2019-11-10 04:11] LABS: COVID19 Sendout Not Detected (Not Detect)
== END ==
PROVIDERS: PCP Nurse Practitioner Family; Visit Provider Physician Assistant
DX: J02.9 Acute pharyngitis, unspecified (principal); Z20.828 Contact with and (suspected) exposure to other viral communicable diseases
CPT/HCPCS: 87635

== ENCOUNTER → 2019-12-28 13:46 | Outpatient (CLI) | payer OTHER, SELFPAY ==
[2019-12-29 14:27] LABS: COVID19 Sendout Not Detected (Not Detect)
== END ==
PROVIDERS: PCP Nurse Practitioner Family; Visit Provider Physician Assistant
DX: Z03.818 Encounter for observation for suspected exposure to other biological agents ruled out (principal)
CPT/HCPCS: 87635

== ENCOUNTER → 2020-03-09 14:56 | Outpatient (RCR) | payer OTHER, SELFPAY ==
--- NOTE | 2019-02-01 12:09 | PT.OIE ---
Current Diagnoses Muscle weakness (generalized) (01/28/19) Other symptoms and signs involving the musculoskeletal system (01/28/19) Unspecified urinary incontinence (01/28/19) Past Medical History (Last Reviewed 09/06/18 @ 15:20 by Alexx Carrillo MD) Abnormal Pap smear of cervix (Chronic ~2014) Anxiety (Chronic ~2011) Carpal tunnel syndrome (Chronic) Chicken pox (Resolved) Frequent UTI (Chronic ~2014) Ovarian cyst (Chronic ~2007) Shoulder pain (Chronic ~2007) Visit Care Team Role Provider Type Kath Doss MD Attending Provider Physician Primary Care Provider Specialty: Family Practice Address: [address] [place] [address], [facility] Email: [email or web address] Physical Therapy Initial Evaluation PT-OP-A Visit Information Start: 01/27/19 17:32 Freq: Status: Active Protocol: Document 01/28/19 12:51 LRN (Rec: 01/28/19 13:43 LRN [id number]) Out-Patient Physical Therapy Visit Information Visit Information Visit Type Initial Evaluation Visit Start Time 12:51 Visit Stop Time 13:43 Total Visit Minutes 52 Visit Number 1 Evaluation Information Evaluation Date 01/28/19 Precautions Precautions Works 40-60 hrs/week PT-OP-B Current Condition Start: 01/27/19 17:32 Freq: Status: Active Protocol: Document 01/28/19 12:51 LRN (Rec: 01/28/19 13:43 LRN [id number]) Current Condition History of Current Condition Onset Date 2014 after of 2nd child, and worse after 3rd child. Current Complaints Urinary leakage History of Current Condition Pt reports she can't do much of anything without bladder leaking, large amounts. Doesn 't feel the muscle control is like it used be. Doing Kegels as taught be course and Utube video with uniball. Uses them like weights a couple times a week (3 sizes, uses middle one). Can hold the middle one in for ~30 reps x 2, 135-45 sec's in supine. Prior Treatments and Tests No Future Testing and Treatments Planned Bladder surgery if PT doesn't work Developmental History Developmental History Onset of urinary incontinence with of 2nd child in 2014, 3rd child in 2017 made it 10x worse. Now unable to exercise for her heart health . Pt fears lack of cardiovascular workout might be worsening her heart condition; therefore she would like to be able to exercise more. Treatment Goals Patient/Caregiver Goals Wants to be able to work out and be active again and not have to worry about coughing or sneezing. She wants to be able to run with older child. Prior Functional Status Baseline Function- ADL's Independent Baseline Function- Mobility Independent Baseline Function- Other Able to do all activities after the 1st child. Current Functional Impairments (Reported) Functional Limitations- ADL's Coughing, laughing, sneezing, running, jogging with son. Functional Limitations- Other Urinary leakage with all physical activities. 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 Mother of 3 children Blood clotting disorder - July 2018 Patent Foramen Ovale (PFO) PT-OP-C Subjective Start: 01/27/19 17:32 Freq: Status: Active Protocol: Document 01/28/19 12:51 LRN (Rec: 02/01/19 12:00 LRN [id number]) Patient Questionnaires Pelvic Pain and Urgency/Frequency Patient Symptom Scale Pelvic Pain Score 12 OP-PT Pain Assessment Pain Assessment Grid Paper Pain Assessment Grid Completed Yes Comments Pain Comments Pt indicates on drawing that she has pain in her neck, mid- back, and L low back but paez her pain as 0/10. PT-OP-I Pelvic Floor Start: 01/27/19 17:32 Freq: Status: Active Protocol: Document 01/28/19 12:51 LRN (Rec: 01/28/19 16:51 LRN [id number]) Pelvic Floor Assessment Urine Other Urinary Symptoms Urinary leakage with coughing, laughing, running, jogging, light and vigorous activity, intercourse. Leakage Size Large Leakage Cause Cough,Exercise,Lifting,Sneeze Other Leakage Causes Denies feeling of falling out or heaviness, denies slow or hesitant urinary stream or difficulty initiating voiding. Leaks Per Day 3 Voiding Frequency 4-5 Nocturia 1-2 Pads Used In 24 Hours 2-3 Urine Pad Type Panty Liner,Maxi Pad Pelvic Clock Pelvic Clock Other No tenderness or tightness noted. Prolapse Cystocele Grade 1 Rectocele Grade 1 Perineal Descent Resting Absent Bearing Present Contraction Ability Voluntary Relaxation Moderate Manual Muscle Testing Left 2 Manual Muscle Testing Right 2 Manual Muscle Testing Anterior 2 Manual Muscle Testing Posterior 3 Muscle Endurance (Seconds) 10 Number of Quick Contractions In 10 8 Seconds PT-OP-J Posture/Palpation/Skin Start: 01/27/19 17:32 Freq: Status: Active Protocol: Document 01/28/19 12:51 LRN (Rec: 01/28/19 16:58 LRN [id number]) Posture Evaluation Position Standing Evaluation View All positions Head/C-Spine Posture Forward Head Shoulder Posture (R) Elevated Pelvis Posture (L) PSIS Posterior Knee Posture (L) Genu Valgus,(R) Genu Valgus,(R) Genu Recurvatum Ankle/Foot Posture (L) Calcaneal Eversion,(R) Calcaneal Inversion Comments Posture Comments Supine: R leg is long, R innominate elevated. Long sit: R leg is long Prone: L PSIS is superior & Posterior PT-OP-K Range of Motion Start: 01/27/19 17:32 Freq: Status: Active Protocol: Document 01/28/19 12:51 LRN (Rec: 01/28/19 16:58 LRN [id number]) Hip Goniometric Range of Motion Hip Right Passive Hip ROM WFL No Abduction 45 Internal Rotation 45 External Rotation 40 Left Passive Hip ROM WFL No Abduction 50 Internal Rotation 40 External Rotation 50 Hip ROM Limitations Hip ROM Limitations Soft Tissue Tightness Comments Hip AD is greater on the R. PT-OP-M Strength Start: 01/27/19 17:32 Freq: Status: Active Protocol: Document 01/28/19 12:51 LRN (Rec: 01/28/19 16:58 LRN [id number]) Trunk Strength Trunk Manual Muscle Testing Testing Position Supine Core Stabilization Lacks core stabilization during MMT of LE's Hip Strength Hip Manual Muscle Testing Right Flexion (L2) 3 Fair Abduction 4+ Good+ Internal Rotation 4 Good Comments Strength is normal except for Ext, AB, IR as shown above. Left Abduction 3 Fair External Rotation 3 Fair Internal Rotation 4- Good- Comments Strength is normal except for AB, ER, IR as shown above. Knee Strength Knee Manual Muscle Testing Right Reason Not Measured WFL Left Reason Not Measured WFL PT-OP-Q Treatments Start: 01/27/19 17:32 Freq: Status: Active Protocol: Document 01/28/19 12:51 LRN (Rec: 01/28/19 16:58 LRN [id number]) Self-Care/Home Management Treatment Education Patient Education Home Exercise Program Other Education Bladder diary education, clothing to avoid, breath holding. Discussed core weakness and importance to maintain core stability. Activities Self-Care/Home Management Activities Issued handout for HEP of Kegels: Quick Flicks and Aggravators. PT-OP-T Assessment and Plan Start: 01/27/19 17:32 Freq: Status: Active Protocol: Document 01/28/19 12:51 LRN (Rec: 01/28/19 16:58 LRN [id number]) Physical Therapy Assessment Rehab Potential Rehabilitation Potential Good Evaluation Complexity Number of Personal Factors/Comorbidities 3 or More Number of Body Systems Impaired 4 or More Clinical Presentation at Evaluation Evolving Impairments Impairments Functional Activities, Functional Mobility,Gait, Posture,ROM,Strength Other Concerns Age Related Concerns Effect on family and social settings Barriers to Rehabilitation Work hours Goals Four Impairment Pt lacks education in proper fluid management and proper BM 's Short Term Goal (STG) Pt will be educated in proper fluid management STG Duration 02/04/19 Fourdrinier Tender Goal (LTG) Pt will be able to identify proper mechanics for having a BM to reduce straining on the PF. LTG Duration 04/28/19 Three Impairment Pt lacks lift of PF with contraction Short Term Goal (STG) Pt will be able to identify a proper PF contraction with use of a home E-stim unit. STG Duration 02/11/19 Fourdrinier Tender Goal (LTG) Pt will be able to perform a PF contraction of strength 4/5 in isolation of substitute muscles. LTG Duration 04/28/19 Two Impairment Pt has urinary leakage with stress to PF (cough, laugh, active activities) Short Term Goal (STG) Pt will be able to maintain continence in the presence of a cough, sneeze or laugh). STG Duration 03/23/19 Fourdrinier Tender Goal (LTG) Pt will be able to have minimal urinary leakage with walking and light jog for short distances. LTG Duration 04/28/19 One Impairment Lacks self care HEP Alf Goal (LTG) Pt will be independent with a self care HEP to maintain level of continence achieved. LTG Duration 04/28/19 Assessment Summary Assessment Pt presents with stress urinary incontinence with good deep PF strength but has very little lift to her PF and poor superficial strength. She appears to have fairly good endurance in supine position, but bladder positioning and PF strength will need to be assessed in standing to fully understand the scope of this patient's condition. The pt also appears to have a mechanical dysfunction of the pelvis that is probably also contributing to her condition. The pt reports withholding fluids to avoid leakage, which may be compounding her problem due to straining with defecation. The pt will benefit from skilled physical therapy to improve voiding habits, strength PF in isolation of superficial muscles, perform proper PF contractions and reduce stress on her PF with bowel movements. The pt appears to do well with home exercises; therefore use of a home PF e-stim unit to improve awareness of proper PF contractions would be beneficial for this patient. The pt is expected to do well with therapy. Physical Therapy Plan Frequency and Duration Frequency of Treatment 1x/Week Plan of Care Start Date 01/28/19 Plan of Care End Date 04/28/19 Therapeutic Interventions Therapeutic Interventions Home Exercise Program,Joint Mobilizations,Manual Therapy, Neuromuscular Re-education, Patient/Caregiver Education, Self-Care/Home Management,Soft Tissue Mobilization,Taping, Therapeutic Exercises Modalities Cold Pack/Ice Massage,Electric Stimulation,Hot Packs Next Visit Focus/Plan Next Note Type Treatment Note Next Visit Plan Bladder diary, PF assessment in standing, EMG biofeedback awareness training and E-stim, and teaching quick flicks. Core strengthening, posturing for work with hip hinge, progressing strengthening in all positions. HEP: Hip ROM/ strengthening, roll in/outs, deep breathing.
--- NOTE | 2019-02-11 15:11 | PT-OP ANOTE ---
Pt DNS. Pt called with message left of missed appt and reminder of cancel/no show policy.
--- NOTE | 2019-02-11 15:39 | PT-OP ANOTE ---
Pt called to inform her father had and she will not be back until the first week in February. Any appts before Feb will be cancelled due to family .
--- NOTE | 2019-02-25 16:21 | PT-OP ANOTE ---
Pt cancelled, strep in house, no childcare.
--- NOTE | 2019-03-04 16:42 | PT-OP ANOTE ---
Per phone, pt states she had all her appts cancelled the last time she called PT. She is putting therapy on hold until after the new year when things settle down at home.
--- NOTE | 2019-12-20 16:43 | PT-OP ANOTE ---
Pt called and message left of plan to discharge the pt, requested pt call back if any questions or concerns by end of week, otherwise discharge note will be made. Return phone number was given.
--- NOTE | 2020-03-01 17:27 | PT-OP ANOTE ---
Late entry: Pt called 13:29. Message left of discharge by tomorrow 03/02/20 if we do not hear back from the patient regarding continuation of therapy. Pt was instructed to seek a new referral if therapy needed after the new year.
--- NOTE | 2020-03-05 10:15 | PT.OPDS ---
Current Diagnoses Muscle weakness (generalized) (01/28/19) Other symptoms and signs involving the musculoskeletal system (01/28/19) Unspecified urinary incontinence (01/28/19) Visit Care Team Role Provider Type Kath Doss MD Attending Provider Physician Primary Care Provider Specialty: Family Practice Address: [address] [place] [address], [id number] Email: [email or web address] Visit Number Visit Number 1 Discharge Summary PT-OP-B Current Condition Start: 01/27/19 17:32 Freq: Status: Active Protocol: Document 01/28/19 12:51 LRN (Rec: 01/28/19 13:43 LRN [id number]) Current Condition History of Current Condition Onset Date 2014 after of 2nd child, and worse after 3rd child. Current Complaints Urinary leakage History of Current Condition Pt reports she can't do much of anything without bladder leaking, large amounts. Doesn 't feel the muscle control is like it used be. Doing Kegels as taught be course and Utube video with uniball. Uses them like weights a couple times a week (3 sizes, uses middle one). Can hold the middle one in for ~30 reps x 2, 135-45 sec's in supine. Prior Treatments and Tests No Future Testing and Treatments Planned Bladder surgery if PT doesn't work Developmental History Developmental History Onset of urinary incontinence with of 2nd child in 2014, 3rd child in 2016 made it 10x worse. Now unable to exercise for her heart health . Pt fears lack of cardiovascular workout might be worsening her heart condition; therefore she would like to be able to exercise more. Treatment Goals Patient/Caregiver Goals Wants to be able to work out and be active again and not have to worry about coughing or sneezing. She wants to be able to run with older child. Prior Functional Status Baseline Function- ADL's Independent Baseline Function- Mobility Independent Baseline Function- Other Able to do all activities after the 1st child. Current Functional Impairments (Reported) Functional Limitations- ADL's Coughing, laughing, sneezing, running, jogging with son. Functional Limitations- Other Urinary leakage with all physical activities. 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 Mother of 3 children Blood clotting disorder - July 2018 Patent Foramen Ovale (PFO) PT-OP-C Subjective Start: 01/27/19 17:32 Freq: Status: Active Protocol: Document 01/28/19 12:51 LRN (Rec: 02/01/19 12:00 LRN [id number]) Patient Questionnaires Pelvic Pain and Urgency/Frequency Patient Symptom Scale Pelvic Pain Score 12 OP-PT Pain Assessment Pain Assessment Grid Paper Pain Assessment Grid Completed Yes Comments Pain Comments Pt indicates on drawing that she has pain in her neck, mid- back, and L low back but paez her pain as 0/10. PT-OP-I Pelvic Floor Start: 01/27/19 17:32 Freq: Status: Active Protocol: Document 01/28/19 12:51 LRN (Rec: 01/28/19 16:51 LRN [id number]) Pelvic Floor Assessment Urine Other Urinary Symptoms Urinary leakage with coughing, laughing, running, jogging, light and vigorous activity, intercourse. Leakage Size Large Leakage Cause Cough,Exercise,Lifting,Sneeze Other Leakage Causes Denies feeling of falling out or heaviness, denies slow or hesitant urinary stream or difficulty initiating voiding. Leaks Per Day 3 Voiding Frequency 4-5 Nocturia 1-2 Pads Used In 24 Hours 2-3 Urine Pad Type Panty Liner,Maxi Pad Pelvic Clock Pelvic Clock Other No tenderness or tightness noted. Prolapse Cystocele Grade 1 Rectocele Grade 1 Perineal Descent Resting Absent Bearing Present Contraction Ability Voluntary Relaxation Moderate Manual Muscle Testing Left 2 Manual Muscle Testing Right 2 Manual Muscle Testing Anterior 2 Manual Muscle Testing Posterior 3 Muscle Endurance (Seconds) 10 Number of Quick Contractions In 10 8 Seconds PT-OP-J Posture/Palpation/Skin Start: 01/27/19 17:32 Freq: Status: Active Protocol: Document 01/28/19 12:51 LRN (Rec: 01/28/19 16:58 LRN [id number]) Posture Evaluation Position Standing Evaluation View All positions Head/C-Spine Posture Forward Head Shoulder Posture (R) Elevated Pelvis Posture (L) PSIS Posterior Knee Posture (L) Genu Valgus,(R) Genu Valgus,(R) Genu Recurvatum Ankle/Foot Posture (L) Calcaneal Eversion,(R) Calcaneal Inversion Comments Posture Comments Supine: R leg is long, R innominate elevated. Long sit: R leg is long Prone: L PSIS is superior & Posterior PT-OP-K Range of Motion Start: 01/27/19 17:32 Freq: Status: Active Protocol: Document 01/28/19 12:51 LRN (Rec: 01/28/19 16:58 LRN [id number]) Hip Goniometric Range of Motion Hip Right Passive Hip ROM WFL No Abduction 45 Internal Rotation 45 External Rotation 40 Left Passive Hip ROM WFL No Abduction 50 Internal Rotation 40 External Rotation 50 Hip ROM Limitations Hip ROM Limitations Soft Tissue Tightness Comments Hip AD is greater on the R. PT-OP-M Strength Start: 01/27/19 17:32 Freq: Status: Active Protocol: Document 01/28/19 12:51 LRN (Rec: 01/28/19 16:58 LRN [id number]) Trunk Strength Trunk Manual Muscle Testing Testing Position Supine Core Stabilization Lacks core stabilization during MMT of LE's Hip Strength Hip Manual Muscle Testing Right Flexion (L2) 3 Fair Abduction 4+ Good+ Internal Rotation 4 Good Comments Strength is normal except for Ext, AB, IR as shown above. Left Abduction 3 Fair External Rotation 3 Fair Internal Rotation 4- Good- Comments Strength is normal except for AB, ER, IR as shown above. Knee Strength Knee Manual Muscle Testing Right Reason Not Measured WFL Left Reason Not Measured WFL PT-OP-T Assessment and Plan Start: 01/27/19 17:32 Freq: Status: Active Protocol: Document 03/05/20 10:09 LRN (Rec: 03/05/20 10:14 LRN [id number]) Physical Therapy Assessment Goals Four Impairment Pt lacks education in proper fluid management and proper BM 's Short Term Goal (STG) Pt will be educated in proper fluid management STG Duration 02/04/19 (03/05/20: NOT MET GOAL, Lack of attendance) Plug Cutting Machine Operator Goal (LTG) Pt will be able to identify proper mechanics for having a BM to reduce straining on the PF. LTG Duration 04/28/19 (03/05/20: NOT MET GOAL, Lack of attendance) Three Impairment Pt lacks lift of PF with contraction Short Term Goal (STG) Pt will be able to identify a proper PF contraction with use of a home E-stim unit. STG Duration 02/11/19 (03/05/20: NOT MET GOAL, Lack of attendance) Plug Cutting Machine Operator Goal (LTG) Pt will be able to perform a PF contraction of strength 4/5 in isolation of substitute muscles. LTG Duration 04/28/19 (03/05/20: NOT MET GOAL, Lack of attendance) Two Impairment Pt has urinary leakage with stress to PF (cough, laugh, active activities) Short Term Goal (STG) Pt will be able to maintain continence in the presence of a cough, sneeze or laugh). STG Duration 03/23/19 (03/05/20: NOT MET GOAL, Lack of attendance) Plug Cutting Machine Operator Goal (LTG) Pt will be able to have minimal urinary leakage with walking and light jog for short distances. LTG Duration 04/28/19 (03/05/20: NOT MET GOAL, Lack of attendance) One Impairment Lacks self care HEP [facility] Goal (LTG) Pt will be independent with a self care HEP to maintain level of continence achieved. LTG Duration 04/28/19 (03/05/20: NOT MET GOAL, Lack of attendance) Assessment Summary Assessment Pt was seen for an initial evaluation on 02/01/19 and has not been able to attend therapy due to several reasons . She is not able to attend therapy until the new year; therefore the pt will need a new referral to return to physical therapy as a new pt in the new year. Physical Therapy Plan Discharge Physical Therapy Discharge Reasons No Longer Attending PT Discharge Comments I was unsuccessful in contacting the pt by phone. Messages were left for pt to call clinic regarding therapy by 03/01/20. Pt has not called back and is therefore being discharged from physical therapy due to lack of attendance. Thank you for your referral.
== END ==
LOC: PHYS 01-28 12:22
PROVIDERS: PCP Family Medicine; Visit Provider Family Medicine
DX: R32 Unspecified urinary incontinence (principal); M62.81 Muscle weakness (generalized); R29.898 Other symptoms and signs involving the musculoskeletal system
CPT/HCPCS: 97162; 97535

== ENCOUNTER → 2020-04-06 12:50 | Outpatient (CLI) | payer OTHER, SELFPAY ==
[2020-04-06 13:16] LABS: Add Manual Diff / Slide Review NO; Basophils Absolute Auto 0 /uL (0-100); Basophils Percent Auto 0.4 % (0-2); Eosinophils Absolute Auto 0 /uL (0-450); Eosinophils Percent Auto 0.4 % (2-4); Hematocrit 45.4 % (36-46); Hemoglobin 15.3 g/dL (12.0-16.0); Lymphocytes Absolute Auto 1800 /uL (1100-4500); Lymphocytes Percent Auto 23.7 % (25-40); Mean Corpuscular HGB Conc 33.8 % (30-36); Mean Corpuscular Hemoglobin 31.2 PG (26-34); Mean Corpuscular Volume 92.5 fL (80-100); Monocytes Absolute Auto 600 /uL (0-900); Monocytes Percent Auto 7.4 % (3-14); Neutrophils Absolute Auto 5200 /uL (1500-7000); Neutrophils Percent Auto 68.1 % (50-75); Platelet Count 173 X10^3/uL (150-400); Red Cell Distribution Width 13.4 % (11.6-14.8); White Blood Cell Count 7.7 X10^3/uL (4.5-11.0)
[2020-04-06 13:26] LABS: INR 1.3 (0.9-1.3); Prothrombin Time 14.3 SECONDS (10.1-12.7)
[2020-04-06 13:28] LABS: PTT Partial Thromboplastin Tim 45 SECONDS (26.4-36.2)
[2020-04-06 13:37] LABS: Alanine Aminotransferase 12 IU/L (<35); Albumin 4.9 g/dL (3.5-5.0); Albumin Globulin Ratio 1.5 (1.0-2.8); Alkaline Phosphatase 49 U/L (38-126); Aspartate Aminotransferase 20 IU/L (14-36); BUN Creatinine Ratio 13.8 (6-22); Bilirubin Total 0.4 mg/dL (0.2-1.3); Blood Urea Nitrogen 8 mg/dL (7-17); Calcium 9.6 mg/dL (8.4-10.2); Carbon Dioxide 28 mmol/L (22-32); Chloride 104 mmol/L (98-107); Estimated Glomerular Filt Rate > 60.0 mL/min (>60); Globulin 3.3 g/dL (1.7-4.1); Glucose 95 mg/dL (70-100); HEMOLYSIS < 15 (0-50); Potassium 3.8 mmol/L (3.4-5.1); Sodium 137 mmol/L (137-145); Total Protein 8.2 g/dL (6.3-8.2)
== END ==
PROVIDERS: PCP Family Medicine; Referring Provider Family Medicine; Visit Provider Family Medicine
DX: D68.51 Activated protein C resistance (principal); M79.661 Pain in right lower leg; T14.8XXA Other injury of unspecified body region, initial encounter
CPT/HCPCS: 36415; 80053; 85025; 85610; 85730

== ENCOUNTER → 2020-06-22 15:05 | Outpatient (CLI) | payer OTHER, SELFPAY | PROVIDERS: PCP Family Medicine; Referring Provider Physician Assistant; Visit Provider Physician Assistant | DX: N34.3 Urethral syndrome, unspecified (principal) | CPT/HCPCS: 87077; 87086; 87186 ==

== ENCOUNTER 2020-11-12 11:11 | Emergency (ER) | payer OTHER, SELFPAY ==
[2020-11-12 11:15] VITALS: BP 131/68; PULSE 97; RESP 18; TEMP 37.1; O2SAT 100; BMI 31.1
--- NOTE | 2020-11-12 11:39 | ED.GENADULT ---
HPI - General Adult General Chief complaint: Abdominal Pain Stated complaint: Abd pain since Thu Time Seen by Provider: 11/12/20 11:26 History of Present Illness HPI narrative: 35-year-old female who is here for evaluation of Center abdominal discomfort since Thursday of last week. She states that it does get worse when she eats or drinks. She has also had diarrhea. No urinary symptoms. She does have an IUD in place. She thought that initially the discomfort was radiating to her right lower quadrant. No fevers. Has not tried anything for symptoms prior to arrival. Related Data Home Medications Medication Instructions Recorded Confirmed Probiotic PO 07/23/17 06/22/20 cholecalciferol (vitamin D3) 250 10,000 unit PO DAILY 07/23/17 06/22/20 mcg (10,000 unit) tablet copper 380 square mm intrauterine INTRAUTERINE each 03/08/18 06/22/20 device (ParaGard T 380A) magnesium 250 mg tablet 421 mg PO DAILY tab 05/24/18 06/22/20 rivaroxaban 10 mg tablet (Xarelto) 10 mg PO DAILY 09/06/19 06/22/20 rivaroxaban 10 mg tablet (Xarelto) 10 mg PO DAILY 09/26/19 06/22/20 Allergies Allergy/AdvReac Type Severity Reaction Status Date / Time Sulfa (Sulfonamide Allergy Severe ANAPHALAXIS Verified 08/13/20 15:21 Antibiotics) [SULFA (SULFONAMIDE ANTIBIOTICS)] Gadolinium-Containing Allergy Unknown Hives, Verified 08/13/20 15:21 Contrast Medi facial swelling warfarin [WARFARIN] Allergy Unknown Verified 08/13/20 15:21 verapamil Allergy Verified 08/13/20 15:21 Review of Systems Constitutional Constitutional: Denies fever(s) Cardiovascular Cardiovascular: Reports system reviewed and no additional complaints, except as documented Respiratory Respiratory: Reports system reviewed and no additional complaints, except as documented Gastrointestinal Gastrointestinal: Reports as per HPI Musculoskeletal Musculoskeletal: Reports system reviewed and no additional complaints, except as documented Integumentary/Breasts Skin/Breast: Reports system reviewed and no additional complaints, except as documented Hematologic/Lymphatic On Anticoagulants: Yes Allergic/Immunologic Allergic/Immunologic: Reports system reviewed and no additional complaints, except as documented Patient History Medical History Abnormal Pap smear of cervix (~2014) Anxiety (~2011) Carpal tunnel syndrome Chicken pox Factor V Leiden mutation Frequent UTI (~2014) Hemorrhage after vaginal delivery Nasal fracture Ovarian cyst (~2007) Placenta previa antepartum in second trimester (07/04/16) Shoulder pain (~2007) Vaginal delivery Vasa previa (07/04/16) Family History (System 08/13/20 @ 15:21 by Sybil Davies) Grandfather Cancer High cholesterol Grandmother Age: 83 Lung cancer Brain cancer High cholesterol Mental health problem Mother Age: 55 Thyroid disease Mental health problem Sister Age: 26 Diabetes mellitus Hypertension CAH (chronic active hepatitis) Sister Age: 31 Thyroid disease Mental health problem Social History Smoking Status: Former smoker Smoking Status: Former smoker alcohol intake frequency: 0-2 drinks per day Substance Use Type: does not use Exam Initial Vital Signs Initial Vital Signs: Vital Signs Temperature 98.8 F 11/12/20 11:15 Pulse Rate 97 H 11/12/20 11:15 Respiratory Rate 18 11/12/20 11:15 Blood Pressure 131/68 11/12/20 11:15 Pulse Oximetry 100 11/12/20 11:15 Const General: cooperative, comfortable and well developed HENUT Head: normal to inspection and normocephalic Resp Effort & Inspection: normal respiratory effort Auscultation: clear to auscultation bilaterally Cardio Rate: regular rate Rhythm: regular rhythm GI Inspection: normal to inspection Palpation: soft and tender (Diffuse) Skin General: no rashes or lesions noted Neuro General: patient alert, patient awake, patient oriented x3 and moves all extremities Extrem General: normal to inspection Psych Appearance: grossly normal Course Orders Ordered: ED Orders 11/12/20 11:34 Complete Blood Count AUTO DIFF Stat 11/12/20 11:45 CT abdomen pelvis wo con Stat 11/12/20 12:15 Comprehensive Metabolic Panel Stat Lipase Stat Test Serum,Qual Stat 11/12/20 13:10 GI Panel (Film Array) Stat Discontinued Medications Sodium Chloride (Normal Saline 0.9%) 1,000 mls @ 1,000 mls/hr IV BOLUS ONE Stop: 11/12/20 12:41 Last Infusion: 11/12/20 13:58 Dose: 0 mls/hr Documented by: Admin: 11/12/20 12:21 Dose: 1,000 mls/hr Documented by: SAMI Vital Signs Vital signs: Vital Signs - 8 hr 11/12/20 11:15 11/12/20 13:46 Temperature 98.8 F Pulse Rate 97 H 80 Respiratory Rate 18 Blood Pressure 131/68 94/55 L Pulse Oximetry 100 100 Medical Decision Making Lab Data Lab results reviewed: Yes I reviewed the patient's lab results. Result diagrams: 11/12/20 11:34 11/12/20 12:15 Labs: Lab Results 11/12/20 11/12/20 11/12/20 Range/Units 11:34 12:15 12:15 WBC 7.9 (4.5-11.0) X10^3/uL RBC 4.90 (4.0-5.2) X10^6/uL Hgb 15.3 (12.0-16.0) g/dL Hct 45.6 (36-46) % MCV 92.9 (80-100) fL MCH 31.2 (26-34) PG MCHC 33.6 (30-36) % RDW 12.9 (11.6-14.8) % Plt Count 180 (150-400) X10^3/uL Neut % (Auto) 75.1 H (50-75) % Lymph % (Auto) 15.5 L (25-40) % Antelope % (Auto) 8.5 (3-14) % Eos % (Auto) 0.4 L (2-4) % Baso % (Auto) 0.5 (0-2) % Neut # (Auto) 5900 (4660-4201) /uL Lymph # (Auto) 1200 (6548-6476) /uL Antelope # (Auto) 700 (0-900) /uL Eos # (Auto) 0 (0-450) /uL Baso # (Auto) 0 (0-100) /uL Sodium 139 (137-145) mmol/L Potassium 4.0 (3.4-5.1) mmol/L Chloride 105 (98-107) mmol/L Carbon Dioxide 27 (22-32) mmol/L BUN 8 (7-17) mg/dL Creatinine 0.66 (0.52-1.04) mg/dL Estimated GFR > 60.0 (>60) mL/min BUN/Creatinine Ratio 12.1 (6-22) Glucose 100 (70-100) mg/dL Calcium 9.7 (8.4-10.2) mg/dL Total Bilirubin 0.6 (0.2-1.3) mg/dL AST 19 (14-36) IU/L ALT 13 (<35) IU/L Alkaline Phosphatase 61 (38-126) U/L Total Protein 7.8 (6.3-8.2) g/dL Albumin 4.5 (3.5-5.0) g/dL Globulin 3.3 (1.7-4.1) g/dL Albumin/Globulin Ratio 1.4 (1.0-2.8) Lipase 78 (23-300) U/L Serum , Qual Negative (Negative) Stl C. cayetanensis PCR (Not Detect) Stool Rotavirus (PCR) (Not Detect) Stool Adenovirus (PCR) (Not Detect) Stool Astrovirus (PCR) (Not Detect) Stool Cryptosporidium PCR (Not Detect) Stl E.coli Shiga Tox PCR (Not Detect) St Sh/Enteroin Ecoli PCR (Not Detect) Stool E coli O157 PCR (Not Detect) Stl Enterotoxigenic E PCR (Not Detect) Stool EPEC (PCR) (Not Detect) Stl E. histolytica PCR (Not Detect) Stool Giardia Lamblia PCR (Not Detect) Stool Sapovirus (PCR) (Not Detect) Stl P. shigelloides PCR (Not Detect) St Y.enterocolitica PCR (Not Detect) Stool Vibrio (PCR) (Not Detect) Stl Vibrio cholerae PCR (Not Detect) Stl Enteroaggr Ecoli PCR (Not Detect) Stl Norovirus GI/GII PCR (Not Detect) Campylobacter (PCR) (Not Detect) C. difficile Tox (PCR) (Not Detect) Salmonella (PCR) (Not Detect) 11/12/20 Range/Units 13:10 WBC (4.5-11.0) X10^3/uL RBC (4.0-5.2) X10^6/uL Hgb (12.0-16.0) g/dL Hct (36-46) % MCV (80-100) fL MCH (26-34) PG MCHC (30-36) % RDW (11.6-14.8) % Plt Count (150-400) X10^3/uL Neut % (Auto) (50-75) % Lymph % (Auto) (25-40) % Antelope % (Auto) (3-14) % Eos % (Auto) (2-4) % Baso % (Auto) (0-2) % Neut # (Auto) (3993-9827) /uL Lymph # (Auto) (7361-7467) /uL Antelope # (Auto) (0-900) /uL Eos # (Auto) (0-450) /uL Baso # (Auto) (0-100) /uL Sodium (137-145) mmol/L Potassium (3.4-5.1) mmol/L Chloride (98-107) mmol/L Carbon Dioxide (22-32) mmol/L BUN (7-17) mg/dL Creatinine (0.52-1.04) mg/dL Estimated GFR (>60) mL/min BUN/Creatinine Ratio (6-22) Glucose (70-100) mg/dL Calcium (8.4-10.2) mg/dL Total Bilirubin (0.2-1.3) mg/dL AST (14-36) IU/L ALT (<35) IU/L Alkaline Phosphatase (38-126) U/L Total Protein (6.3-8.2) g/dL Albumin (3.5-5.0) g/dL Globulin (1.7-4.1) g/dL Albumin/Globulin Ratio (1.0-2.8) Lipase (23-300) U/L Serum , Qual (Negative) Stl C. cayetanensis PCR Not detected (Not Detect) Stool Rotavirus (PCR) Not detected (Not Detect) Stool Adenovirus (PCR) Not detected (Not Detect) Stool Astrovirus (PCR) Not detected (Not Detect) Stool Cryptosporidium PCR Not detected (Not Detect) Stl E.coli Shiga Tox PCR Not detected (Not Detect) St Sh/Enteroin Ecoli PCR Not detected (Not Detect) Stool E coli O157 PCR Not detected (Not Detect) Stl Enterotoxigenic E PCR Not detected (Not Detect) Stool EPEC (PCR) Not detected (Not Detect) Stl E. histolytica PCR Not detected (Not Detect) Stool Giardia Lamblia PCR Not detected (Not Detect) Stool Sapovirus (PCR) Not detected (Not Detect) Stl P. shigelloides PCR Not detected (Not Detect) St Y.enterocolitica PCR Not detected (Not Detect) Stool Vibrio (PCR) Not detected (Not Detect) Stl Vibrio cholerae PCR Not detected (Not Detect) Stl Enteroaggr Ecoli PCR Not detected (Not Detect) Stl Norovirus GI/GII PCR Not detected (Not Detect) Campylobacter (PCR) Detected H (Not Detect) C. difficile Tox (PCR) Not detected (Not Detect) Salmonella (PCR) Not detected (Not Detect) Point of Care Testing Test Results Negative Urine Dip Bedside Urine Glucose Negative Bedside Urine Bilirubin - Negative Bedside Urine Ketone +/- 5 Urine Specific [place] 1.030 Bedside Urine Occult Blood +/- Bedside Urine pH 6.0 Bedside Urine Protein - Negative Bedside Urine Urobilinogen - Negative Bedside Urine Nitrite - Negative Bedside Urine Leukocytes - Negative Esterase Point of care testing: Point of Care Testing Test Results Negative Urine Dip Bedside Urine Glucose Negative Bedside Urine Bilirubin - Negative Bedside Urine Ketone +/- 5 Urine Specific [place] 1.030 Bedside Urine Occult Blood +/- Bedside Urine pH 6.0 Bedside Urine Protein - Negative Bedside Urine Urobilinogen - Negative Bedside Urine Nitrite - Negative Bedside Urine Leukocytes - Negative Esterase Imaging Data CT scan - abdomen/pelvis: Radiologist's Impression: [address] [id number] Scan ReportSigned Patient: Miryam Davila R#: [id number]: 1985Acct:[id number]/Sex: 35 / FDate of Service: 11/12/20Loc: EDAccession Number: [id number] Procedure: CT abdomen pelvis wo con Ordering Provider: Barry Ferguson D.O. PROCEDURE: CT ABDOMEN PELVIS WO CON INDICATIONS: Midline/right lower quadrant abdominal pain TECHNIQUE: Axial sections were acquired from the lung bases to the pubic symphysis. Coronal and sagittal reformats were performed. For radiation dose reduction, the following was used: automated exposure control, adjustment of mA and/or kV according to patient size. COMPARISON: [facility], [place], CT ANGIO CHEST PE PROTOCOL, 07/30/2018, 13:01. [facility], PERIPH VENOUS LOW EXTREM RT, 09/26/2019, 10:43. [facility], PELVIC COMPLETE, 09/05/2019, 13:10. FINDINGS: Image quality: Excellent. Lung bases: Unremarkable. Heart: No significant findings. URINARY: Right Kidney: No stones or hydronephrosis. Right Ureter: No hydroureter. Left Kidney: No stones or hydronephrosis. Left Ureter: No hydroureter. Bladder: Normal wall thickness. No stones. ABDOMEN: Liver: Unremarkable. Gallbladder: Unremarkable. Biliary ducts: Unremarkable. Pancreas: Unremarkable. Spleen: Unremarkable. Adrenal Glands: Unremarkable. Stomach and Bowel: Stomach, small bowel loops, and colon are in caliber. There is mild colonic wall thickening involving the hepatic flexure, transverse colon, descending and sigmoid colon, consistent with colitis. Peritoneum: No abnormal intraperitoneal fluid. No free air. Ventral Wall: No hernia. Abdominal Nodes: No enlarged retroperitoneal or mesenteric lymph nodes. Vessels: Aorta and inferior vena cava are normal in size. PELVIS: Pelvic Organs: There is an IUD in uterus. Ovaries are grossly normal. No pathological free-fluid in the cul-de-sac. Pelvic Nodes: Unremarkable. Miscellaneous: No inguinal hernias are seen. Bones: Unremarkable. IMPRESSION: 1. No appendicitis. 2. Mild diffuse colonic wall thickening consistent with mild colitis. Etiology may be inflammatory bowel disease or infectious colitis. Recommend clinical correlation. 3. No renal stone or hydronephrosis. The result was discussed with Dr. Ferguson. Dictated by: Gael Olivia M.D. on 11/12/2020 at 12:08 Approved by: Gael Olivia M.D. on 11/12/2020 at 12:22 MDM Narrative Medical decision making narrative: Labs are unremarkable, CT scan shows thickening of the transverse colon which does fit her clinical presentation. GI panel is positive for Campylobacter. No indication for antibiotics currently. I did discuss this with her. She received fluids. No indication for admission to the hospital nurse surgical consultation. She was given return precautions. She expressed understanding and agreement. Discharge Plan Departure Patient Disposition: Home Clinical Impression: Campylobacter diarrhea Instructions: Diarrhea Activity Restrictions/Additional Instructions: Your stool sample today was positive for Campylobacter. This should be a self-limiting illness. Be sure your wash your hands frequently. Increase you fluid intake. Contact your primary doctor for follow-up. Return to the emergency department for any new or worsening symptoms Prescriptions: No Action Xarelto 10 mg tablet 10 mg PO DAILY RF: 0 Xarelto 10 mg tablet 10 mg PO DAILY RF: 0 copper [ParaGard T 380A] 380 square mm intrauterine device Intrauterine RF: 0 Probiotic PO RF: 0 cholecalciferol (vitamin D3) 10,000 unit tablet 10,000 unit PO DAILY RF: 0 magnesium 250 mg tablet 421 mg PO DAILY RF: 0 Referrals: Kath Doss MD [Primary Care Provider] -
--- NOTE | 2020-11-12 11:45 | DI.CT.S_ITS ---
PROCEDURE: CT ABDOMEN PELVIS WO CON INDICATIONS: Midline/right lower quadrant abdominal pain TECHNIQUE: Axial sections were acquired from the lung bases to the pubic symphysis. Coronal and sagittal reformats were performed. For radiation dose reduction, the following was used: automated exposure control, adjustment of mA and/or kV according to patient size. COMPARISON: [facility], [place], CT ANGIO CHEST PE PROTOCOL, 07/30/2018, 13:01. [facility], , PERIPH VENOUS LOW EXTREM RT, 09/26/2019, 10:43. [facility], , PELVIC COMPLETE, 09/05/2019, 13:10. FINDINGS: Image quality: Excellent. Lung bases: Unremarkable. Heart: No significant findings. URINARY: Right Kidney: No stones or hydronephrosis. Right Ureter: No hydroureter. Left Kidney: No stones or hydronephrosis. Left Ureter: No hydroureter. Bladder: Normal wall thickness. No stones. ABDOMEN: Liver: Unremarkable. Gallbladder: Unremarkable. Biliary ducts: Unremarkable. Pancreas: Unremarkable. Spleen: Unremarkable. Adrenal Glands: Unremarkable. Stomach and Bowel: Stomach, small bowel loops, and colon are in caliber. There is mild colonic wall thickening involving the hepatic flexure, transverse colon, descending and sigmoid colon, consistent with colitis. Peritoneum: No abnormal intraperitoneal fluid. No free air. Ventral Wall: No hernia. Abdominal Nodes: No enlarged retroperitoneal or mesenteric lymph nodes. Vessels: Aorta and inferior vena cava are normal in size. PELVIS: Pelvic Organs: There is an IUD in uterus. Ovaries are grossly normal. No pathological free-fluid in the cul-de-sac. Pelvic Nodes: Unremarkable. Miscellaneous: No inguinal hernias are seen. Bones: Unremarkable. IMPRESSION: 1. No appendicitis. 2. Mild diffuse colonic wall thickening consistent with mild colitis. Etiology may be inflammatory bowel disease or infectious colitis. Recommend clinical correlation. 3. No renal stone or hydronephrosis. The result was discussed with Dr. Ferguson. Dictated by: Gael Olivia M.D. on 11/12/2020 at 12:08 Approved by: Gael Olivia M.D. on 11/12/2020 at 12:22
[2020-11-12 11:52] LABS: Add Manual Diff / Slide Review NO; Basophils Absolute Auto 0 /uL (0-100); Basophils Percent Auto 0.5 % (0-2); Eosinophils Absolute Auto 0 /uL (0-450); Eosinophils Percent Auto 0.4 % (2-4); Hematocrit 45.6 % (36-46); Hemoglobin 15.3 g/dL (12.0-16.0); Lymphocytes Absolute Auto 1200 /uL (1100-4500); Lymphocytes Percent Auto 15.5 % (25-40); Mean Corpuscular HGB Conc 33.6 % (30-36); Mean Corpuscular Hemoglobin 31.2 PG (26-34); Mean Corpuscular Volume 92.9 fL (80-100); Monocytes Absolute Auto 700 /uL (0-900); Monocytes Percent Auto 8.5 % (3-14); Neutrophils Absolute Auto 5900 /uL (1500-7000); Neutrophils Percent Auto 75.1 % (50-75); Platelet Count 180 X10^3/uL (150-400); Red Cell Distribution Width 12.9 % (11.6-14.8); White Blood Cell Count 7.9 X10^3/uL (4.5-11.0)
[2020-11-12] MEDS: SODIUM CHLORIDE 0.9% 1,000 ML 1000 ML IV (12:21)
[2020-11-12 12:40] LABS: Alanine Aminotransferase 13 IU/L (<35); Albumin 4.5 g/dL (3.5-5.0); Albumin Globulin Ratio 1.4 (1.0-2.8); Alkaline Phosphatase 61 U/L (38-126); Aspartate Aminotransferase 19 IU/L (14-36); BUN Creatinine Ratio 12.1 (6-22); Bilirubin Total 0.6 mg/dL (0.2-1.3); Blood Urea Nitrogen 8 mg/dL (7-17); Calcium 9.7 mg/dL (8.4-10.2); Carbon Dioxide 27 mmol/L (22-32); Chloride 105 mmol/L (98-107); Estimated Glomerular Filt Rate > 60.0 mL/min (>60); Globulin 3.3 g/dL (1.7-4.1); Glucose 100 mg/dL (70-100); HEMOLYSIS < 15 (0-50); Lipase 78 U/L (23-300); Sodium 139 mmol/L (137-145); Total Protein 7.8 g/dL (6.3-8.2)
[2020-11-12 12:50] LABS: Pregnancy Test Serum,Qual Negative (Negative)
[2020-11-12 13:46] VITALS: BP 94/55; PULSE 80; O2SAT 100
[2020-11-12 14:56] LABS: Adenovirus F 40/41 Not Detected (Not Detect); Astrovirus Not Detected (Not Detect); Campylobacter Detected (Not Detect); Clostridium difficile toxin AB Not Detected (Not Detect); Cryptosporidium Not Detected (Not Detect); Cyclospora cayetanensis Not Detected (Not Detect); Entamoeba histolytica Not Detected (Not Detect); Enteroaggregative E.coli Not Detected (Not Detect); Enteropathogenic E.coli Not Detected (Not Detect); Enterotoxigenic E.coli It/st Not Detected (Not Detect); Giardia lamblia Not Detected (Not Detect); Norovirus GI/GII Not Detected (Not Detect); Plesiomonsa shigelloides Not Detected (Not Detect); Rotavirus A Not Detected (Not Detect); Salmonella Not Detected (Not Detect); Sapovirus Not Detected (Not Detect); Shiga-like toxin-prod E.coli Not Detected (Not Detect); Shigella/Enteroinvasive E.coli Not Detected (Not Detect); Vibrio Not Detected (Not Detect); Vibrio cholerae Not Detected (Not Detect); Yersinia enterocolitica Not Detected (Not Detect)
[2020-11-12 15:20] VITALS: BP 102/65; PULSE 82; RESP 16; O2SAT 99
== END 2020-11-12 15:20 | disposition home or self-care (01) ==
PROVIDERS: Emergency Provider Emergency Medicine; PCP Family Medicine
DX: A04.5 Campylobacter enteritis (principal)
CPT/HCPCS: 36415; 74176; 80053; 81003; 81025; 83690; 84703; 85025; 87507; 96360; 96361; 99284

== ENCOUNTER → 2022-04-25 13:34 | Outpatient (CLI) | payer OTHER, SELFPAY ==
--- NOTE | 2022-04-25 13:35 | DI.MG.S_ITS ---
BILATERAL DIGITAL DIAGNOSTIC MAMMOGRAM 3D/2D: 04/25/2022 No prior exams were available for comparison. Both breasts are heterogeneously dense, which may obscure small masses (category c / 51-75% glandular tissue). No significant masses, calcifications, or other findings are seen in either breast. IMPRESSION: INCOMPLETE: NEEDS ADDITIONAL IMAGING EVALUATION There is no mammographic abnormality seen in the left breast to correspond with the pain, however, ultrasound is recommended. Based on the Tyrer Cuzick model (a risk assessment model) the patient's lifetime risk is 10.9% and her 10 year risk is 0.8%. According to the ACR, ACS, and NCCN guidelines, an annual breast MRI exam along with mammogram is recommended if the patient's lifetime risk is 20% or greater. This exam was interpreted at Station ID: [id number]. NOTE: For mammograms, a report in lay terms will be sent to the patient. Approximately 15% of breast malignancies will not be visualized mammographically. In the management of a palpable breast mass, a negative mammogram must not discourage biopsy of a clinically suspicious lesion. Electronically Signed By: Mikayla myers/:04/25/2022 14:07:47 letter sent: Additional Imaging Needed ACR BI-RADS Category 0: Incomplete [id number]
== END ==
PROVIDERS: PCP Family Medicine; Referring Provider Family Medicine; Visit Provider Family Medicine
DX: N64.4 Mastodynia (principal); Z80.3 Family history of malignant neoplasm of breast; R92.2 Inconclusive mammogram
CPT/HCPCS: 77066; G0279

== ENCOUNTER → 2023-12-18 14:08 | Outpatient (CLI) | payer OTHER, SELFPAY ==
[2023-12-26 14:08] LABS: Chlamydia trachomatis Negative (Negative); Mycoplasma genitalium Negative (Negative); Neisseria gonorrhoeae Negative (Negative)
== END ==
PROVIDERS: PCP Family Medicine; Visit Provider Family Medicine
DX: N89.8 Other specified noninflammatory disorders of vagina (principal)
CPT/HCPCS: 87109; 87210; 87491; 87563; 87591

== ENCOUNTER → 2024-02-08 14:44 | Outpatient (CLI) | payer OTHER, SELFPAY ==
--- NOTE | 2024-02-08 14:46 | DI.RAD.S_ITS ---
PROCEDURE: XR CHEST 2V INDICATIONS: chest pain TECHNIQUE: 2 views of the chest were acquired. COMPARISON: [facility], , XR CHEST 2V, 11/30/2017, 14:19. [facility], , CHEST 1 VIEW, 12/04/2016, 21:15. FINDINGS: Surgical changes and devices: None. Lungs and pleura: Lungs are clear. No pleural effusions or pneumothorax. Mediastinum: Mediastinal contours are normal. Heart size is normal. Bones and chest wall: No suspicious bony abnormalities. Soft tissues appear unremarkable. IMPRESSION: No acute cardiothoracic process. Dictated by: Brad Lund M.D. on 02/08/2024 at 17:15 Approved by: Brad Lund M.D. on 02/08/2024 at 17:16
--- NOTE | 2024-02-08 15:15 | DI.US.S_ITS ---
PROCEDURE: US THYROID INDICATIONS: Thyroid nodule TECHNIQUE: Real-time scanning was performed of the thyroid gland, with image documentation. COMPARISON: None. FINDINGS: Thyroid: Right lobe measures 5.8 x 1.6 x 1.8 cm. Left lobe measures 4.7 x 1.6 x 1.4 cm. Isthmus is 0.2 cm thick. Echotexture is homogeneous. A dominant left thyroid nodule is partially cystic partially solid and slightly hypoechoic to the surrounding parenchyma. No echogenic foci. Smooth margins. TR 3. This measures 2.6 x 1.6 x 1.3 cm. IMPRESSION: TR 3 dominant left thyroid nodule meets criteria for sampling. ACR TI-RADS definitions and recommendations: TI-RADS 1 (benign): 0 points. FNA not needed. TI-RADS 2 (not suspicious): 2 points. FNA not needed. TI-RADS 3: 3 points. * FNA if 2.5 cm or larger, follow up if 1.5 cm or larger (at 1, 3, and 5 years). TI-RADS 4: 4-6 points. * FNA if 1.5 cm or larger, follow up if 1 cm or larger (at 1, 2, 3, and 5 years). TI-RADS 5: 7 points or more. * FNA if 1 cm or larger, follow up if 0.5 cm or larger (every year for 5 years). Dictated by: Mikey Monaco M.D. on 02/08/2024 at 16:52 Approved by: Mikey Monaco M.D. on 02/08/2024 at 16:54
--- NOTE | 2024-02-08 15:45 | DI.US.S_ITS ---
PROCEDURE: US PELVIC COMPLETE INDICATIONS: Pelvic pain TECHNIQUE: Real-time scanning was performed of the pelvic organs, with image documentation. Additional endovaginal scanning was necessary due to incomplete visualization of the adnexal and endometrial structures by transabdominal scanning. COMPARISON: [facility], , PELVIC COMPLETE, 09/05/2019, 13:10. FINDINGS: Uterus: 8.4 x 4.7 x 6.7 cm. Endometrium is seen measuring 7 mm with IUD in place. Intramural right anterior fibroid measures 2 cm. Ovaries: Dominant follicle is seen in the prominent right ovary measuring 1.4 cm, total volume is 13 cc. Nonenlarged left ovary. Color and spectral flows are identified Other: Again seen are prominent adnexal vessels. IMPRESSION: Prominent adnexal vessels are nonspecific, sometimes seen in the setting of pelvic congestion syndrome given reported pelvic pain. Prominent right ovary with a dominant follicle measuring 1.4 cm. No current evidence of torsion. IUD is seen within the endometrium. Dictated by: Mikey Monaco M.D. on 02/08/2024 at 16:54 Approved by: Mikey Monaco M.D. on 02/08/2024 at 16:55
== END ==
PROVIDERS: PCP Family Medicine; Referring Provider Family Medicine; Visit Provider Family Medicine
DX: E04.1 Nontoxic single thyroid nodule (principal); R10.2 Pelvic and perineal pain; Z97.5 Presence of (intrauterine) contraceptive device
CPT/HCPCS: 71046; 76536; 76830; 76856

== ENCOUNTER → 2024-03-02 10:07 | Outpatient (CLI) | payer OTHER, SELFPAY ==
--- NOTE | 2024-03-02 10:08 | DI.US.S_ITS ---
PROCEDURE: US FINE NEEDLE ASPIRATION INDICATIONS: TR3 dominant left thyroid nodule TECHNIQUE: The indications, alternatives, benefits, risks, and complications of the procedure were explained to the patient. Written informed consent was obtained and placed in the chart. The thyroid region was examined sonographically and a site was chosen for ultrasound guided percutaneous sampling. The skin was prepared and draped in the usual fashion, and anesthetized with 1% lidocaine infiltrated from the skin down to the thyroid gland. Multiple passes were then performed, with contents emptied into an appropriate pathology specimen container. A bandage was applied to the area of access at completion of the study. COMPARISON: None. FINDINGS: Location(s) of lesion(s) sampled: Left [place]: 25 gauge hypodermic needles. Number of passes: 6 Medications: 1% lidocaine for local anaesthesia. Complications: None. IMPRESSION: Successful ultrasound-guided thyroid nodule fine needle aspiration, with cytology results pending. Please see chart below for management recommendations based on cytology results. [place] [facility] ReportingRecommendationsNon-diagnostic* Repeat US-guided FNA, with on-site cytology evaluation if possible. * Repeated non-diagnostic nodules without high suspicion US features: close observation vs surgical consult. * Consider surgery if nodule has high suspicion US features, grows >20% in 2 dimensions on followup, or patient has clinical risk factors for malignancy. Benign* If nodule has high suspicion US features: repeat US and FNA within 12 months. * If nodule has low to intermediate suspicion US features: repeat US at 12-24 months. If nodule grows (20% increase in at least 2 dimensions, with minimal increase of 2 mm or >50% change in volume), or development of new suspicious US features, then repeat FNA or continue followup. * If nodule has very low suspicion US features: followup US at >24 months. Atypia of undetermined significance, follicular lesion of undetermined significanceRepeat FNA, molecular testing, followup US, or surgical consult.Follicular neoplasm, suspicious for follicular neoplasmSurgical consult; also consider molecular testing. Suspicious for malignancySurgical consult.MalignantSurgical consult. Dictated by: Eric Miller M.D. on 03/02/2024 at 14:48 Approved by: Eric Miller M.D. on 03/02/2024 at 14:51
--- NOTE | 2024-03-02 11:21 | PATH_ITS ---
Note [facility] Accession Number: [id number] TESTS RESULT FLAG UNITS REF RANGE LAB Clinician Provided Cytology Information No. of containers..02 Previously Prepared Cytology Slide 35 Unknown Storage/container code(s) Source: THYROID MASS DIAGNOSIS: THYROID MASS ATYPIA OF UNDETERMINED SIGNIFICANCE. [place] CATEGORY III. ATYPIA OF UNDETERMINED SIGNIFIANCE - NUCLEAR ATYPIA. MOLECULAR STUDIES REQUESTED; RESULTS WILL BE REPORTED SEPARATELY. Pathologist ICD10: R89.6 Signed out by: Yomaira Patrick MD, Pathologist NPI- [id number] Performed by: Carlyn Barksdale, Ferry Operator ([facility]) Gross description: 30 CC, PINK, CLEAR RECEIVED IN CYTOLYT WHITE CAP CONTAINER. RECEIVED 6 ALCOHOL FIXED SLIDES IN 2 GREEN CAP COFFINS RECEIVED 6 FIXED STAINED SLIDES IN 2 COFFINS RECEIVED 1 RNA VIAL. : 03-31-2024 TOM /DESEAN 03/03/2024 1241 Local FLAG LEGEND: L-Low Normal,H-High Normal,LL-Alert Low,HH-Alert High <-Panic Low,>-Panic High,A-Abnormal,AA-Critical Abnormal Performed at: 01 =[address] [facility], [place] [address] Lester Haro MD, Performed at: [facility] [address] [place] [address] [address], [place], [place] [id number] MD Lester Haro MD Phone: [phone]
== END ==
PROVIDERS: PCP Family Medicine; Referring Provider Family Medicine; Visit Provider Family Medicine
DX: E04.1 Nontoxic single thyroid nodule (principal)
CPT/HCPCS: 10005

== ENCOUNTER → 2025-01-06 07:48 | Outpatient (CLI) | payer OTHER, SELFPAY ==
[2025-01-06 09:03] LABS: Add Manual Diff / Slide Review NO; Hematocrit 44.2 % (36-46); Hemoglobin 15.4 g/dL (12.0-16.0); Lymphocytes Absolute Auto 1600 /uL (1100-4500); Mean Corpuscular HGB Conc 34.9 % (30-36); Mean Corpuscular Hemoglobin 32.1 PG (26-34); Mean Corpuscular Volume 92.0 fL (80-100); Platelet Count 183 X10^3/uL (150-400)
[2025-01-06 09:20] LABS: Alanine Aminotransferase 21 IU/L (<35); Albumin 4.7 g/dL (3.5-5.0); Albumin Globulin Ratio 1.6 (1.0-2.8); Alkaline Phosphatase 59 U/L (38-126); Blood Urea Nitrogen 14 mg/dL (7-17); Calcium 9.7 mg/dL (8.4-10.2); Carbon Dioxide 27 mmol/L (22-32); Chloride 103 mmol/L (98-107); Estimated Glomerular Filt Rate > 60 mL/min (>60); Globulin 2.9 g/dL (1.7-4.1); Glucose 102 mg/dL (70-99); HEMOLYSIS 20 (0-50); Magnesium 2.1 mg/dL (1.6-2.3); Potassium 4.6 mmol/L (3.4-5.1); Sodium 137 mmol/L (137-145); Total Protein 7.6 g/dL (6.3-8.2)
== END ==
PROVIDERS: PCP Family Medicine; Referring Provider Family Medicine; Visit Provider Family Medicine
DX: R25.3 Fasciculation (principal); D68.51 Activated protein C resistance; G44.89 Other headache syndrome
CPT/HCPCS: 36415; 80053; 83735; 85025

== ENCOUNTER → 2025-01-31 12:39 | Outpatient (CLI) | payer OTHER, SELFPAY ==
--- NOTE | 2025-01-31 12:42 | DI.MRI.S_ITS ---
PROCEDURE: MR HEAD/BRAIN WO CON
--- NOTE | 2025-01-31 12:42 | DI.MRI.S_ITS ---
PROCEDURE: MR ANGIO HEAD WO CON
== END ==
LOC: MRI 12:40
PROVIDERS: PCP Family Medicine; Referring Provider Family Medicine; Visit Provider Family Medicine
DX: G44.89 Other headache syndrome (principal); R25.3 Fasciculation; D68.51 Activated protein C resistance; G08 Intracranial and intraspinal phlebitis and thrombophlebitis; E34.8 Other specified endocrine disorders
CPT/HCPCS: 70544; 70551

== ENCOUNTER → 2025-02-06 08:01 | Outpatient (CLI) | payer OTHER, SELFPAY ==
[2025-02-06 09:16] LABS: Influenza A - CEPHEID Flu A NEGATIVE (NEGATIVE); Influenza B - CEPHEID Flu B NEGATIVE (NEGATIVE)
[2025-02-06 09:21] LABS: COVID-19 CEPHEID 4-PLEX PCR Negative (Negative)
== END ==
PROVIDERS: PCP Family Medicine; Visit Provider Chiropractor
DX: R05.1 Acute cough (principal)
CPT/HCPCS: 87637

== ENCOUNTER → 2025-02-06 08:06 | Outpatient (CLI) | payer OTHER, SELFPAY ==
--- NOTE | 2025-02-06 08:07 | DI.RAD.S_ITS ---
PROCEDURE: XR CHEST 2V INDICATIONS: r/o pneumonia/brochitis steam inhalation TECHNIQUE: 2 views of the chest were acquired. COMPARISON: [facility], CR, XR CHEST 2V, 02/08/2024, 14:44. FINDINGS: Surgical changes and devices: None. Lungs and pleura: Lungs are clear. No pleural effusions or pneumothorax. Mediastinum: Mediastinal contours are normal. Heart size is normal. Bones and chest wall: No suspicious bony abnormalities. Soft tissues appear unremarkable. IMPRESSION: No acute cardiopulmonary abnormality is seen. Dictated by: Albert Cunha M.D. on 02/06/2025 at 9:11 Approved by: Albert Cunha M.D. on 02/06/2025 at 9:12
== END ==
PROVIDERS: PCP Family Medicine; Referring Provider Family Medicine; Visit Provider Chiropractor
DX: J68.0 Bronchitis and pneumonitis due to chemicals, gases, fumes and vapors (principal)
CPT/HCPCS: 71046; 87637

== ENCOUNTER → 2025-02-20 17:17 | Outpatient (CLI) | payer OTHER, SELFPAY ==
--- NOTE | 2025-02-20 17:19 | DI.RAD.S_ITS ---
PROCEDURE: XR SHOULDER LT MIN 2V INDICATIONS: PAIN TECHNIQUE: 3 views of the shoulder were acquired. COMPARISON: None. FINDINGS: Bones: No fractures or dislocations. No suspicious bony lesions. Visualized ribs appear intact. Soft tissues: No suspicious soft tissue calcifications. IMPRESSION: No visualized acute fracture or dislocation. However, if clinical concern and/or pain persist, short interval imaging followup in 7-10 days is recommended, as occult injury cannot be definitively excluded. Dictated by: Tiarra Hoyt M.D. on 02/20/2025 at 18:22 Approved by: Tiarra Hoyt M.D. on 02/20/2025 at 18:23
== END ==
PROVIDERS: PCP Family Medicine; Referring Provider Physician Assistant; Visit Provider Physician Assistant
DX: M25.512 Pain in left shoulder (principal)
CPT/HCPCS: 73030